=== PATIENT | female | born 1965 | race Caucasian/White ===

== ENCOUNTER 2021-07-03 00:58 | Day surgery (SDC) | payer BC, OTHER, SELFPAY ==
[2021-06-20 09:11] VITALS: BMI 32.2
[2021-07-03 08:24] VITALS: BP 136/91; PULSE 88; RESP 18; TEMP 36.1; O2SAT 100; BMI 31.4
--- NOTE | 2021-07-03 08:44 | WPDGICN ---
Assessment and Plan Assessment and plan (1) Ulcerative colitis: Code(s): K51.90 - Ulcerative colitis, unspecified, without complications Status: Acute Assessment and Plan: Patient with long history of ulcerative colitis clinically in remission on Humira. Plan to continue Humira. Intermittent screening colonoscopies are advised. Colonoscopy will be performed at this time. Further recommendations will be given after endoscopy. GI Consult Note Consult date/time: 07/03/21 08:44 HPI: Ainsley Davis is a 56 year old female Presents for screening colonoscopy. Patient has a history of ulcerative colitis with symptoms throughout her whole life. It was diagnosed at least 15 years ago. Most recently has been stable. Her current weight appetite bowel movements are normal. She has been maintained on Humira 40 mg every 2 weeks. Patient denies any blood in her stools. Her bowel movements are normal. Her family history is noncontributory. [facility], [facility] Family History Family History Sibling Hypertension Family history of kidney stones Mother Family history of malignant neoplasm Family history of kidney disease Father Family history of congestive heart failure Other Family history of alcoholism Family history of allergic disorder Social History Social History Years smoked: 15 Smoking status: Former smoker Smoking end date: 06/14/05 Alcohol intake: never Living arrangements: alone Meds Home Medications and Allergies Home Medications Medication Instructions Recorded Confirmed Type azelastine 137 mcg (0.1 %) nasal 137 mcg INTRANASAL Q12H 05/21/21 06/20/21 History spray aerosol ezetimibe 10 mg tablet 10 mg PO DAILY 05/21/21 06/20/21 History fluoxetine 20 mg capsule 20 mg PO DAILY 05/21/21 06/20/21 History montelukast 10 mg tablet 10 mg PO DAILY 05/21/21 06/20/21 History adalimumab 40 mg/0.8 mL 40 mg SUBCUT .COMPLEX #6 ea 05/27/21 Rx subcutaneous pen kit adalimumab 40 mg/0.8 mL See Rx Instructions SUBCUT 06/02/21 06/20/21 Rx subcutaneous pen kit .COMPLEX #6 ea acetaminophen [Tylenol] 650 mg PO BID 06/20/21 06/20/21 History ergocalciferol (vitamin D2) 25,000 unit PO BID 06/20/21 06/20/21 History [Vitamin D2] famotidine 20 mg PO DAILY 06/20/21 06/20/21 History fluticasone propionate [Flonase] 1 spray INTRANASAL DAILY 06/20/21 06/20/21 History multivit with min-folic acid 1 tablet PO DAILY 06/20/21 06/20/21 History [Adult One Daily Multivitamin] Allergies Allergy/AdvReac Type Severity Reaction Status Date / Time azathioprine Allergy Intermediate THROAT Verified 07/03/21 08:18 SWELLING mesalamine Allergy Intermediate THROAT Verified 07/03/21 08:18 SWELLING azithromycin Allergy Unknown Hives Verified 07/03/21 08:18 Sulfa (Sulfonamide Allergy Unknown rash Verified 07/03/21 08:18 Antibiotics) Vital Signs Vital Signs - 24 hr 07/03/21 08:24 Temperature 97 F L Pulse Rate 88 Respiratory Rate 18 Blood Pressure 136/91 H Pulse Oximetry 100 Exam Narrative: Physical exam reveals patient be alert. Vital signs stable. HEENT exam is unremarkable. Patient is anicteric. Lungs are clear to auscultation and percussion. Heart is without murmur or extra sounds. Abdominal exam bowel sounds are present soft nontender with no hepato splenomegaly. Digital external rectal exam is normal.
[2021-07-03] MEDS: LACTATED RINGERS 1,000 ML 150 ML IV CONT (08:45)
--- NOTE | 2021-07-03 09:21 | WPDANESEPPF ---
Anes - Initial Pre Proc Eval Procedure: Operation Date: 07/03/21 09:30 Proposed Procedures p Colonoscopy - Tommy Harper MD Date/Time: 07/03/21 09:21 Surgeon: Tommy Harper MD Pre Op Diagnosis: ulcerative colitis Patient Data Age: 56 Gender: F Height: 1.57 m Weight: 77.9 kg Last Vital Signs Temp 97 F L 07/03/21 08:24 Pulse 88 07/03/21 08:24 Resp 18 07/03/21 08:24 BP 136/91 H 07/03/21 08:24 Pulse Ox 100 07/03/21 08:24 Allergies Allergy/AdvReac Type Severity Reaction Status Date / Time azathioprine Allergy Intermediate THROAT Verified 07/03/21 08:18 SWELLING mesalamine Allergy Intermediate THROAT Verified 07/03/21 08:18 SWELLING azithromycin Allergy Unknown Hives Verified 07/03/21 08:18 Sulfa (Sulfonamide Allergy Unknown rash Verified 07/03/21 08:18 Antibiotics) Home Medications Medication Instructions Recorded Confirmed Type azelastine 137 mcg (0.1 %) nasal 137 mcg INTRANASAL Q12H 05/21/21 06/20/21 History spray aerosol ezetimibe 10 mg tablet 10 mg PO DAILY 05/21/21 06/20/21 History fluoxetine 20 mg capsule 20 mg PO DAILY 05/21/21 06/20/21 History montelukast 10 mg tablet 10 mg PO DAILY 05/21/21 06/20/21 History adalimumab 40 mg/0.8 mL 40 mg SUBCUT .COMPLEX #6 ea 05/27/21 Rx subcutaneous pen kit adalimumab 40 mg/0.8 mL See Rx Instructions SUBCUT 06/02/21 06/20/21 Rx subcutaneous pen kit .COMPLEX #6 ea acetaminophen [Tylenol] 650 mg PO BID 06/20/21 06/20/21 History ergocalciferol (vitamin D2) 25,000 unit PO BID 06/20/21 06/20/21 History [Vitamin D2] famotidine 20 mg PO DAILY 06/20/21 06/20/21 History fluticasone propionate [Flonase] 1 spray INTRANASAL DAILY 06/20/21 06/20/21 History multivit with min-folic acid 1 tablet PO DAILY 06/20/21 06/20/21 History [Adult One Daily Multivitamin] Patient hx anesthesia problems: none Family hx anesthesia problems: none Results Review: All pre-operative results and documents have been reviewed as part of the pre-operative evaluation. [facility] Family History Family History Sibling Hypertension Family history of kidney stones Mother Family history of malignant neoplasm Family history of kidney disease Father Family history of congestive heart failure Other Family history of alcoholism Family history of allergic disorder Social History Social History Years smoked: 15 Smoking status: Former smoker Smoking end date: 06/14/05 Alcohol intake: never Living arrangements: alone Anes - Eval Final PreProcedure Day of Procedure 07/03/21 09:21 Patient weight: obese Heart: regular rate and rhythm Lungs: clear to auscultation Airway: Mallampati scale class II Neurological: alert and oriented Last oral intake: >/= 8 hours ASA classification: III Emergent: no Anesthetic plan: proceed Anesthesia type and monitoring: general GIVS and standard monitoring Results Review: All pre-operative results and documents have been reviewed as part of the pre-operative evaluation. Informed Consent: The patient's anesthetic plan and its attendant risks and benefits were discussed with the patient/family/POA. Questions were solicited and answers provided to the satisfaction of the patient/family/POA.
[2021-07-03 09:50] VITALS: BP 146/80; PULSE 70; RESP 23; O2SAT 100
[2021-07-03 10:00] VITALS: BP 139/83; PULSE 76; RESP 22; O2SAT 100
[2021-07-03 10:10] VITALS: BP 155/87; PULSE 62; RESP 22; O2SAT 100
== END 2021-07-03 10:24 | disposition home or self-care (01) ==
PROVIDERS: PCP Nurse Practitioner Adult Health; Visit Provider Internal Medicine Gastroenterology
PROC: 0DJD8ZZ Inspection of Lower Intestinal Tract, Via Natural or Artificial Opening Endoscopic (ICD-10-PCS; CPT 45378; principal; 2021-07-03 09:30)
DX: K51.00 Ulcerative (chronic) pancolitis without complications (principal); K63.5 Polyp of colon; Z87.891 Personal history of nicotine dependence; E66.9 Obesity, unspecified; Z68.31 Body mass index [BMI] 31.0-31.9, adult
CPT/HCPCS: 45380; 45385; 88305; J2704; J7120

== ENCOUNTER 2022-03-12 07:56 | Outpatient (CLI) | payer OTHER, SELFPAY ==
--- NOTE | 2022-03-24 20:09 | WPDHOMESLEEP ---
Sleep Study - Home Unattended Date of Study: 03/12/22 Ordering Provider: Diana Hunter, FOURDRINIER MACHINE TENDER- Interpreting Provider: Malina Rice, DO Home Sleep Study Type: Watch PAT Height: 1.57 m Weight: 79.832 kg Body Mass Index: 32.1 Neck Circumference (inches): 15.75 Morenci: 3 Reason for Sleep Study Daytime hypersomnia Sleep History The patient is a 57 year old female with ulcerative colitis, seasonal allergies, hyperlipidemia, anxiety, folate deficiency, GERD and history of tobacco use that had a sleep study ordered by her primary care for evaluation of sleep apnea. the patient rarely awakens from sleep short of breath. He frequently awakens at night with heartburn, belching or cough. He frequently snores but it is fairly loud enough that others complain. She constantly has trouble sleeping when she has a cold. He denies waking up gasping for air throughout the night. She denies having breathing problems at night observed by herself or others. She occasionally sweats excessively at night. She occasionally has heart palpitations or irregular heartbeats during the night. She rarely falls asleep during the day but never while driving. She denies sleep paralysis, cataplexy and hypnagogic / hypnopompic hallucinations. He rarely has trouble at school or work due to sleepiness. She denies feeling afraid of going to sleep. She occasionally has nightmares. She occasionally remembers her dreams. She constantly has thoughts racing through her mind. She rarely feels sad or depressed. She constantly has anxiety. She occasionally has muscular tension. She occasionally notices parts of her body jerk. She rarely kicks during the night. She rarely has crawling and aching feelings in her legs and occasionally has leg pain during the night. She frequently grinds her teeth during sleep and frequently awakens with morning jaw pain. She is occasionally bothered by pain during the day but never awakened by pain during the night. She constantly wakes up feeling stiff in morning. She frequently wakes up with sore achy muscles. She frequently wakes up with pain in the neck, spine or other joints. She goes to bed at 9:00 p.m. on both weekdays and weekends. It takes her 30-60 minutes to fall asleep. She wakes up 2-3 times throughout the night for unknown reasons. It takes her 15-30 minutes to fall back asleep. She wakes up at 5:00 a.m. on both weekdays and weekends. She typically gets 8-10 hours of sleep per night. She will stay in bed for 5 minutes after waking up in the morning. She currently lives with her . She will consume caffeinated beverages within 2 hours of bedtime. He does not engage in physical exercise before bedtime. She will read watch television before falling asleep. She denies taking naps in the afternoon or the evening. She drinks 3 caffeinated beverages per day. He drinks 1-2 alcoholic beverages per week. She quit smoking cigarettes 10 years ago. She denies recreational drug use. [facility] Family History Family History Sibling Hypertension Family history of kidney stones Mother Family history of malignant neoplasm Family history of kidney disease Father Family history of congestive heart failure Other Family history of alcoholism Family history of allergic disorder Social History Social History Years smoked: 15 Smoking status: Former smoker Smoking end date: 06/14/05 Alcohol intake: never Medications Home Medications Medication Instructions Recorded Confirmed Type azelastine 137 mcg (0.1 %) nasal 137 mcg intranasal Q12H 05/21/21 06/20/21 History spray aerosol ezetimibe 10 mg tablet 10 mg PO DAILY 05/21/21 06/20/21 History fluoxetine 20 mg capsule 20 mg PO DAILY 05/21/21 06/20/21 History montelukast 10 mg tablet 10 mg PO DAILY 05/21/21 06/20/21 History adalimu
[2022-03-24 20:27] VITALS: BMI 32.1
== END 2022-03-13 11:03 | disposition home or self-care (01) ==
LOC: ANHCSM 07:57
PROVIDERS: PCP Nurse Practitioner Adult Health; Visit Provider Nurse Practitioner Family
DX: G47.10 Hypersomnia, unspecified (principal); G47.33 Obstructive sleep apnea (adult) (pediatric)
CPT/HCPCS: 95800

== ENCOUNTER 2023-08-20 13:42 | Outpatient (CLI) | payer OTHER, SELFPAY ==
--- NOTE | ~2023-08-20 | CT_ITS ---
EXAMINATION: CT abdomen pelvis wo con DATE: 08/20/2023 14:00 INDICATION: Calculus of kidney. TECHNIQUE: Computed tomography (CT) of the abdomen and pelvis was performed without intravenous contr ast. Automated exposure control and iterative reconstruction technique were employed. The dose-length product was 734.39 mGy-cm. COMPARISON: CT abdomen and pelvis 06/02/16 FINDINGS: The visualized portions of the lung bases demonstrate mild atelectasis. There is mild scarr ing in paraspinal right lower lobe. There are a few nodules in the lungs measuring up to 3 mm, likely benign. No pleural effusion. The heart size is normal. No pericardial effusion. The liver is normal. There are changes of cholecystectomy. The spleen, pancreas, adrenal glands, and right kidney are nor mal. There is a 17 mm stone in left renal pelvis. There is diverticulosis of the colon without eviden ce of diverticulitis. There are no dilated loops of bowel. The appendix is normal. There are no patho logically enlarged lymph nodes. There is no free intraperitoneal fluid. There is mild thoracic and franco mbar spondylosis. IMPRESSION: 1. Nonobstructing left kidney stone. Reviewed, dictated and finalized at location E. [employer]
== END 2023-08-20 13:43 ==
LOC: MICIMG 13:44
PROVIDERS: PCP Nurse Practitioner Family; Visit Provider Nurse Practitioner Family
DX: N20.0 Calculus of kidney (principal)
CPT/HCPCS: 74176

== ENCOUNTER 2023-09-20 15:26 | Outpatient (CLI) | payer OTHER, SELFPAY ==
--- NOTE | ~2023-09-20 | XR_ITS ---
Supine and upright views of the abdomen Clinical history: Kidney stones Findings: Bowel gas pattern is nonspecific. No evidence for obstruction or free air. 2 cm stone at th e left renal pelvis region noted. Osseous structures are intact. Impression: 2 cm stone at the left renal pelvis region. Reviewed, dictated and finalized at location . Impression: 2 cm stone at the left renal pelvis region.
== END 2023-09-20 15:27 | disposition home or self-care (01) ==
LOC: ANHIMG 15:28
PROVIDERS: PCP Nurse Practitioner Family; Visit Provider Physician Assistant
DX: N20.0 Calculus of kidney (principal)
CPT/HCPCS: 74018

== ENCOUNTER 2023-11-16 09:17 | Outpatient (CLI) | payer OTHER, SELFPAY ==
--- NOTE | ~2023-11-16 | XR_ITS ---
3 views of the abdomen compared to September 20, 2023. HISTORY: Kidney stone follow-up from stone removal on the left side. FINDINGS: The previously seen stone in the left renal pelvis is not demonstrated at this time. Tiny calcificati ons in the left side of the pelvis are most likely in the fecal matter but the most medial on the may be a tiny stone. Follow-up advised. Postoperative changes seen in the area of the gallbladder. Mild degenerative changes of the spine. IMPRESSION: Status post removal of the left renal pelvis stone. Tiny calcifications in the left side of the pelvis most likely in the fecal matter. Follow-up is advi sed to exclude a stone in the most medial tiny calcification. Reviewed, dictated and finalized at location A. IMPRESSION: Status post removal of the left renal pelvis stone. Tiny calcifications in the left side of the pelvis most likely in the fecal mat ter. Follow-up is advised to exclude a stone in the most medial tiny calcificat ion.
== END 2023-11-16 09:18 | disposition home or self-care (01) ==
PROVIDERS: PCP Nurse Practitioner Family; Visit Provider Urology
DX: N20.0 Calculus of kidney (principal); M61.452 Other calcification of muscle, left thigh
CPT/HCPCS: 74018

== ENCOUNTER 2023-12-28 13:39 | Outpatient (CLI) | payer OTHER, SELFPAY ==
--- NOTE | ~2023-12-28 | MM_ITS ---
EXAMINATION: MM screening thai BI w tiffani HISTORY: Screening TECHNIQUE: Craniocaudal and mediolateral oblique 3-D tomosynthesis images were obtained and synthetic 2-D images were generated. CAD analysis was submitted and interpreted. COMPARISON: Comparison to multiple prior studies sequentially, with oldest reviewed study dated 05/16. BREAST PARENCHYMAL COMPOSITION: Not dense: There are scattered areas of fibroglandular density. FINDINGS: There is no evidence of suspicious mass, calcification, or architectural distortion to sugg est malignancy in either breast. There has been no suspicious interval change. IMPRESSION: 1. No mammographic evidence of malignancy. 2. Recommend routine screening mammography in one year. BI-RADS Category 1: Negative Reviewed, dictated and finalized at location B.
== END 2023-12-28 13:40 | disposition home or self-care (01) ==
LOC: ANHIMG 13:44
PROVIDERS: PCP Nurse Practitioner Family; Visit Provider Nurse Practitioner Family
DX: Z12.31 Encounter for screening mammogram for malignant neoplasm of breast (principal)
CPT/HCPCS: 77063; 77067

== ENCOUNTER 2024-01-06 13:34 | Outpatient (CLI) | payer OTHER, SELFPAY ==
--- NOTE | ~2024-01-06 | XR_ITS ---
EXAM: XR abdomen/kub 1V DATE: 01/06/2024 13:51 HISTORY: HYDRONEPHROSIS, LT SIDE . COMPARISON: 11/16/2023; CT abdomen pelvis 08/20/2023. FINDINGS: Cholecystectomy clips. Normal bowel gas pattern. No organomegaly. Pelvic phleboliths. Marcia onal bones and soft tissues normal for age. IMPRESSION: No radiographic evidence of nephrolithiasis. Reviewed, dictated and finalized at location K.
--- NOTE | ~2024-01-06 | CT_ITS ---
EXAMINATION: CT abdomen pelvis wo/w con DATE: 01/06/2024 14:57 INDICATION: Hydronephrosis TECHNIQUE: Computed tomography (CT) of the abdomen and pelvis was performed without and subsequently with 130 CC Omnipaque 350 intravenous contrast. Automated exposure control and iterative reconstructi on technique were employed. Exam dose: 1737.33 mGy-cm total exam DLP. COMPARISON: 08/20/2023 CT abdomen pelvis. FINDINGS: The lung bases are clear. Normal heart size. No pericardial or pleural effusion. Status post cholecystectomy. No hepatic, pancreatic, splenic or adrenal space-occupying mass lesion. 3 mm nonobstructing left renal calculus. No other urinary tract calculus or hydroureteronephrosis. No renal space occupying mass lesion or filling defect of the renal collecting structures, ureters or urinary bladder. Bilateral ureteral jets. The uterus and adnexal areas are unremarkable. Normal caliber of the abdominal aorta. No intraperitoneal or peritoneal or pelvic mass lesion or adelfo opathy or ascites. The urinary bladder is unremarkable. No evidence of appendicitis. Diverticulosis of left and right colon. No bowel obstruction or intraperitoneal free air. Small fat-containing umbilical hernia. No suspicious osteolytic or osteoblastic lesions. IMPRESSION: Status post cholecystectomy 3 mm nonobstructing left renal calculus No urinary tract obstruction Diverticulosis of the colon Reviewed, dictated and finalized at Location A. Reviewed, dictated and finalized at location J.
== END 2024-01-06 13:35 | disposition home or self-care (01) ==
PROVIDERS: PCP Nurse Practitioner Family; Visit Provider Urology
DX: N13.30 Unspecified hydronephrosis (principal); N20.0 Calculus of kidney; K57.30 Diverticulosis of large intestine without perforation or abscess without bleeding; Z90.49 Acquired absence of other specified parts of digestive tract
CPT/HCPCS: 74018; 74178; Q9967

== ENCOUNTER 2024-10-15 08:03 | Emergency (ER) | payer OTHER, SELFPAY ==
--- NOTE | ~2024-10-15 | XR_ITS ---
XR abdomen/kub 1V Ordering provider: DORINA Moreno History: . blood in urine/hx of Kidney stones . Comparison: None. FINDINGS: BOWEL: Nonobstructive bowel gas pattern. ORGANOMEGALY: None. SIGNIFICANT PATHOLOGIC CALCIFICATIONS: Possible stone in the left lower ureter in the area of the pel vis. Follow-up advised. OTHER: No free air is seen under the diaphragm. IMPRESSION: NO ACUTE ABDOMINAL FINDINGS. Possible left lower ureteric stone. Clinical correlation and Follow-up advised. Reviewed, dictated and finalized at location A.
--- OUTSIDE RECORDS SUMMARY | 2024-10-15 08:05 | XMS_ITS | Patient Health Record ---
Author Organization [facility] [place] ([address]) Address [address] [facility] [address] [place] [address] Care Team Providers Care Web Marketing Manager Name Role Phone Diana Emerson Primary Care Provider Shannon vailable Patricia Loco Unavailable [phone] Chong Gregorio Unavailable [phone] [employer], Provider Unavailable Unavailab le Allergies Allergen (clinical drug ingredient) Drug/Non Drug Allergy documented on EMR Reaction Allergy Type Onset Date Status Sulfamethizole SULFAMETHIZOLE (uncoded) hives Allergy Active mesalamine Apriso throat itching/swelli ng Drug Allergy Active azathioprine azaTHIOprine vomiting, diarrhea Drug Allergy Active Azithromycin joint pain Drug Allergy Act jaden mesalamine Lialda hives Drug Allergy Active Reason For Referral No Information Medications Medication SIG (Take, Route, Frequency, Duration) Notes Start Date End Date Status AZELASTINE NASAL 137 mcg/inh 2 spray(s) intranasally BID for 30 day(s) Active Montelukast Sodium 10 MG 1 tab(s) orally once a day for 30 days 01/18/2020 Active SUDAFED PE 10 mg 1 tab(s) orally every 4 hours prn Active Singulair 10 MG 1 tab(s) orally once a day for 30 Active Tylenol 325 MG 2 tab(s) orally every 4 hours Active RANITIDINE 150 MG 1 CAP(S) ORALLY 2 TIMES A DAY *Please review for potential replacement for e-prescription and drug interaction check* Active Patanase 665 MCG/INH 2 SPRAY(S) INTRANASALLY 2 TIMES A DAY, PRN for 30 DAY(S) *Please review and pick correct strength-formulat ion from [employer] options. If intended option is not shown, discontinue and re-order from Quick Search* Not-Taking MONTELUKAST 10 mg 1 tab(s) orally once a day for 30 days 01/18/2020 Active Benadryl Allergy 25 MG 1 by mouth Qday, PRN Not-Rhys ing Flonase Allergy Relief 50 MCG/ACT 2 sprays intranasally once a day for 30 day(s) Active SINGULAIR 10 mg 1 tab(s) orally once a day for 30 Active NASAL WASHES N/A DIRECTED INTRANASALLY NEEDED for 30 *Please review for potential replacement for e-prescription and drug interaction check* Active Sudafed PE Maximum Strength 10 MG 1 tab(s) orally every 4 hours prn Active Azelastine HCl 137 MCG/SPRAY 2 spray(s) intranasally BID for 30 day(s) Active SINGULAIR 10 1 tab(s) orally once a day for 30 Active HUMIRA PEN 40 mg/0.8 mL subcutaneously every other week Active Singulair 10 MG 1 tab(s) orally once a day for 30 Active BENADRYL 25mg 1 by mouth Qday, PRN Not-Taking FLONASE 50 mcg/inh 1 spray(s) intranasally once a day Active FLONASE 50 mcg/inh 2 sprays intranasally once a day for 30 day(s) Active PATANASE 665 mcg/inh 2 spray(s) intranasally 2 times a day, PRN for 30 day(s) Not-Taking TYLENOL 325 mg 2 tab(s) orally every 4 hours Active MULTIVITAMIN Multiple Vitamins 1 tab(s) orally once a day Active Flonase Allergy Relief 50 MCG/ACT 1 spray(s) intranasally once a day Active Humira Pen 40 MG/0.8 ML SUBCUTANEOUSLY EVERY OTHER WEEK *Please review and pick correct strength-formulat ion from [employer] options. If intended option is not shown, discontinue and re-order from Quick Search* Active Multivitamin - 1 tab(s) orally once a day Active Immunizations Vaccine Route Administration Date Status Comme nts Fluzone Quadrivalent Unknown 02/03/2018 Refused Social History Tobacco Use: Social History Observation Description Date Details (start date - stop date) Never Smoker NA - NA Smoking Smart Form: Question Answer Notes Are you a: never smoker Problems Problem Type SNOMED Code ICD Code Onset Dates Problem Status W/U Status Risk Notes Problem Chronic allergic conjunctivitis (78752310) Other chronic allergic conjunctivitis (H10.45) Active confirmed Problem Allergic rhinitis caused by pollen (disorder) (05969785) Allergic rhinitis due to pollen (J30.1) Active confirmed Problem Allergic rhinitis (91196422) Other allergic rhinitis (J30.89) Active confirmed Problem Elevated blood pressure reading without diagnosis of hypertension (970351822) Elevated blood-pressure reading, without diagnosis of hypertension (R03.0) Active confirmed Encounters Encounter Location Date Provider Diagnosis [facility] [address] [place] [address] 11/27/2023 Provider Qing Allergic rhinitis due to pollen J30.1 Assessments Encounter Date Diagnosis (ICD Code) Assessment Notes Treatment Notes Treatment Clinical Notes Section Notes 11/27/2023 Allergic rhinitis due to pollen (ICD-10 - J30.1) Plan Of Treatment No Information Insurance Providers Payer Name Payer Address Payer Phone Subscriber Number Group Number Insured Name Patient Relationship to Insured Coverage Start Date Coverage End Date R [address] [address] [place], [place] [id number] [phone] Ainsley Davis Self - patient is the insured Medical (General) History Medical History History ICD Code Allergic rhinitis due to pollen Other allergic rhinitis Other chronic allergic conjunctivitis Ulcerative colitis, unspecified with uns pecified complications Calculus of kidney Surgical History Surgery Date(Month/Year) lithotripsy 1995 cholecystectomy 2017
--- OUTSIDE RECORDS SUMMARY | 2024-10-15 08:05 | XMS_ITS | Clinical Summary ---
Author Organization [facility] Address [address] [place] [address] Care Team Providers Care Dock Guard Name Role Phone Isabel Kline MD Primary Care Provider [phone] Diana Hunter APRN-OPTICAL LAB TECHNICIAN Unavailable [phone] Tommy Harper MD Unavailable [phone] Source Comments [facility],non-owned Affiliates and Associated Physician Practices is amultiple site organization consisting of ambulatory clinics and hospital sitesin [place], [place], [place] and [place]. This disclosure is being madepursuant to the Care Everywhere program and may not contain all information available regarding this patient. Last updated 18.[facility] Allergies Active Allergy Reactions Criticality Noted Date Comments Atorvastatin Urticaria Medium 12/13/2020 Azathioprine Urticaria Medium 05/21/2019 Azithromycin Other,Urticaria Medium 05/21/2019 Verified allergy, unknown, attack joints Mesalamine Nausea and/or Vomiting,Shortness of Breath High 03/18/2017 Pravastatin Diarrhea,Myalgias,Na usea and/or Vomiting 05/21/2019 Sulfa Drugs Urticaria Medium 12/13/2020 Medications * Be aware that medications may not be up to date on this document. Alwaysverify current medications with the patient. acetaminophen (TYLENOL) 500 MG tablet acetaminophen 500 mg 0 Active Fluticasone Propionate (FLONASE NA) Flonase 50 mcg 0 Active Probiotic Product (PROBIOTIC-10 PO) Active HUMIRA PEN 40 MG/0.8ML injection 1 Active azelastine (ASTELIN) 0.1 % nasal spray azelastine 137 mcg (0.1 %) nasal spray aerosol USE 1 TO 2 SPRAYS IN EACH NOSTRIL TWICE DAILY 0 Active vitamin D, ergocalciferol , (DRISDOL) 1.25 MG (65625 UT) capsule Take 50,000 Units by mouth every 7 days 1 Active ezetimibe (ZETIA) 10 MG tablet ezetimibe 10 mg tablet TAKE 1 TABLET BY MOUTH EVERY DAY 0 Active famotidine (PEPCID) 20 MG tablet famotidine 20 mg tablet Take 1 tablet twice a day by oral route. 0 Active FLUoxetine (PROZAC) 20 MG capsule fluoxetine 20 mg capsule TAKE 1 CAPSULE BY MOUTH EVERY DAY Active montelukast (SINGULAIR) 10 MG tablet montelukast 10 mg tablet TAKE 1 TABLET BY MOUTH EVERY DAY 0 Active meloxicam (MOBIC) 7.5 MG tablet Take 1 (one) tablet by mouth 2 times daily as needed for Pain 60 tablet 1 1 Active Family History Medical History Relation Name Comments Hypertension Brother Nephrolithiasis Brother Heart Failure Father passes at 61 Arthritis - Osteo Mother Cancer Mother Renal Disease Mother passed at 71 None Known Sister Relation Name Status Comments Brother Alive Father Mother Sister Alive Social History Tobacco Use Types Packs/Day Years Used Date Smoking Tobacco: Never Smokeless Tobacco: Never Alcohol Use Standard Drinks/Week Comments Yes 0 (1 standard drink = 0.6 oz pur e alcohol) Comments No Sex and Gender Information Value Date Recorded Sex Assigned at Not on file Legal Sex Female 1:50 PM CDT Gender Identity Not on file Sexual Orientation Not on file Last Filed Vital Signs Vital Sign Reading Time Taken Comments Blood Pressure 138/87 12/13/2020 9:31 AM CDT Pulse 80 12/13/2020 9:31 AM CDT Temperature 36.8 C (98.2 F) 12/13/2020 9:31 AM CDT Respiratory Rate 16 12/13/2020 9:31 AM CDT Oxygen Saturation - - Inhaled Oxygen Concentration - - Weight 81.2 kg (179 lb) 12/13/2020 9:31 AM CDT Height 157.5 cm (5' 2 ) 12/13/2020 9:31 AM CDT Body Mass Index 32.74 12/13/2020 9:31 AM CDT Plan of Treatment Health Maintenance Due Date Last Done Comments COLOGUARD (AGES 45-75) - COL ON CA SCREENING 1966 COLON MONITORING 1966 COLONOSCOPY - COLON CA SCREENING 1966 CT COLONOGRAPHY - COLON CA SCREENING 1966 Colorectal Cancer Screening 1966 FIT - COLON CA SCREENING 1966 FLEX SIG - COLON CA SCREENING 1966 LIPID TESTING 1966 MAMMOGRAM 1966 HIV SCREENING 1981 HEPATITIS C SCREENING 02/24/1984 DTAP/TDAP/TD VACCINES (1 - Tdap) 1985 HEPATITIS B VACCINE (1 of 3 - 19+ 3-dose series) 1985 PNEUMOCOCCAL VACCINE 50+ (1 of 1 - PCV) 02/29/2016 ZOSTER VACCINE (1 of 2) 02/29/2016 SCREENING FOR DIABETES 12/13/2020 COVID-19 VACCINE (2 - 2023-2 5 season) 2024 09/30/2020 DEPRESSION SCREENING 06/14/2024 INFLUENZA VACCINE (Season Ended) 2025 02/02/2020, 03/17/2019, 03/22/2017 HIB VACCINE Aged Out No longer eligi ble based on patient's age to complete this topic HPV VACCINE Aged Out No longer eligi ble based on patient's age to complete this topic MENINGOCOCCAL (Group B) VACCINE SHARED DECISION-MAKING Aged Out No longer eligible based on patient's age to complete this topic MENINGOCOCCAL GROUPS A/C/Y/W VACCINE Aged Out No longer eligible b ased on patient's age to complete this topic Insurance [facility] [employer] CIGNA [facility] C[employer]NA Care Teams Dock Guard Relationship Specialty Start Date End Date Isabel Kline MD [address] [facility] [address] [place] [address] PCP - General 01/04/18 Diana Hunter, JOB PRESS OPERATOR-OPTICAL LAB TECHNICIAN [address] [place] [phone] Nurse Practitioner Family 12/13/20 Tommy Harper MD [address] [place], [place] [id number] Gastroenterology 12/13/20
--- OUTSIDE RECORDS SUMMARY | 2024-10-15 08:05 | XMS_ITS | Clinical Summary ---
Author Organization [facility] Address [address] [place] [address] Care Team Providers Care Clinic Director Name Role Phone Diana Hunter [facility] Primary Care Provider + Allergies Active Allergy Reactions Criticality Noted Date Comments Mesalamine Er Nausea Only 05/21/2019 Azathioprine Hives 05/21/2019 Mesalamine Nausea Only 05/21/2019 Pravastatin Diarrhea,Nausea and Vomiting 2018 Sulfa Antibiotics Hives 05/21/2019 Azithromycin Hives 05/21/2019 Medications albuterol sulfate HFA 108 (90 Base) MCG/ACT inhaler Inhale 2 puffs into the lungs every 6 (six) hours as needed. 1 Inhaler 9 Active fluticasone propionate 50 MCG/ACT nasal spray Active adalimumab 40 MG/0.8ML injection Inject 40 mg into the skin. 8 Active buPROPion XL 150 MG 24 hr tablet TK 1 T PO QD STOP SERTRALINE 25MG 0 Active ezetimibe 10 MG tablet 0 Active montelukast 10 MG tablet Take 10 mg by mouth daily. 0 Active Multiple Vitamin (MULTIVITAMIN) capsule Take 1 capsule by mouth daily. Active azelastine 0.1 % nasal spray U 1 TO 2 SPRAYS IEN BID 0 Active Acetaminophen 500 MG Chew Tab Acti ve famotidine 20 MG tablet Take 20 mg by mouth 2 (two) times daily. Active Family History Medical History Relation Comments CHF Father Kidney Disease Mother Breast Cancer Neg Hx Relation Status Comments Father Mother Social History Tobacco Use Types Packs/Day Years Used Date Smoking Tobacco: Never Smokeless Tobacco: Never Alcohol Use Standard Drinks/Week Comments No 0 (1 standard drink = 0.6 oz pur e alcohol) AUDIT-C Answer Date Recorded Frequency of Alcohol Consumption Never 05/21/2019 Average Number of Drinks Not on file 019 Frequency of Binge Drinking Not on file 01/2019 Comments No Sex and Gender Information Value Date Recorded Sex Assigned at Not on file Legal Sex Female 6:50 PM CDT Gender Identity Female 06/02/2021 12:29 PM CARPET CLEANING TECHNICIAN Sexual Orientation Straight 06/02/2021 12 :29 PM CARPET CLEANING TECHNICIAN Last Filed Vital Signs Vital Sign Reading Time Taken Comments Blood Pressure 124/67 02/19/2020 9:00 AM CDT Pulse 99 02/19/2020 7:14 AM CDT Temperature 36.9 C (98.5 F) 02/19/2020 9:00 AM CDT Respiratory Rate 16 02/19/2020 7:14 AM CDT Oxygen Saturation 95% 02/19/2020 9:00 AM CDT Inhaled Oxygen Concentration - - Weight 77.1 kg (170 lb) 02/19/2020 7:14 AM CDT Height 157.5 cm (5' 2 ) 02/19/2020 7:14 AM CDT Body Mass Index 31.09 02/19/2020 7:14 AM CDT Plan of Treatment Health Maintenance Due Date Last Done Comments Cervical Cancer Screening Pa p Smear (Age 30 to 64) Every 3 Years 1966 Colorectal Cancer Screening Colonoscopy (10 Years) 1966 Annual Physical 1969 Hepatitis C 02/29/1984 DTaP, Tdap and Td Vaccines ( 1 - Tdap) 1985 Hepatitis B Vaccines (1 of 3 - 19+ 3-dose series) 1985 Cervical Cancer Screening Pa p with HPV Testing (Age 30 to 64) Every 5 Years 02/29/1996 Cervical Cancer Screening wi th HPV 02/29/1996 Pneumococcal Vaccine: 50+ Years (2 of 2 - PCV) 03/22/2018 03/22/2017 Mammogram Screening 05/24/2022 05/24/2020 COVID-19 Vaccine (3 - 2023-2 5 season) 2024 09/30/2020, 09/02/2020 Zoster Vaccines Completed 02/02/2020, 07/13/2019, 07/12/2007 Meningococcal B Vaccine Aged Out No l onger eligible based on patient's age to complete this topic Meningococcal Vaccine Aged Out No peter luis eligible based on patient's age to complete this topic RSV Immunizations Under 20 Months Aged Out No longer eligible b ased on patient's age to complete this topic Procedures Procedure Name Priority Date/Time Associated Diagnosis Comments MG SCREENING W SHRUTHI VIC DIGI Routine 05/24/2020 10:53 AM CARPET CLEANING TECHNICIAN Visit for screening mammogram from Last 3 Months or Most Recently Relevant to Health Maintenance Results * MG SCREENING W SHRUTHI VIC DIGI (05/24/2020 10:53 AM CARPET CLEANING TECHNICIAN) Anatomical Region Laterality Modality Breast Bilateral Mammography 06/27/2020 11:4 1 AM CARPET CLEANING TECHNICIAN Narrative 06/27/2020 11:42 AM CARPET CLEANING TECHNICIAN EXAMINATION: MG SCREENING W SHRUTHI VIC DIGI WITH TOMOSYNTHESIS AND COMPUTER-AIDED DETECTION (CAD) DATE: 05/24/2020 10:22 AM COMPARISON STUDIES: Despite multiple attempts, the previous exams could not be obtained. CLINICAL HISTORY: Visit for screening mammogram . FINDINGS: Bilateral CC, MLO, 2-D and 3-D acquisitions. Scattered residual fibroglandular parenchyma . . No evidence of dominant mass, architectural distortion, skin thickening, nipple retraction or suspicious clusters of microcalcifications. Benign calcifications noted. CONCLUSION: 1. BI-RADS Category 2 - benign findings. Annual screening mammography recommended. 2. TISSUE TYPE: Category B - There are areas of scattered fibroglandular density. MQSA BI-RADS Categories: Category 0 - needs additional imaging evaluation. Category 1 - negative. Category 2 - benign findings. Category 3 - probably benign findings, but short interval follow-up is recommended. Category 4 - suspicious abnormality and biopsy should be considered though the lesion may well be benign. Category 5 - highly suggestive of malignancy and appropriate action should be taken. A) A negative report should not delay a biopsy if a dominant or clinically suspicious mass is present. B) Adenosis and dense breasts may obscure an underlying neoplasm. C) Study interpreted with computer aided detection. Voice recognition software utilized. Interpreted By: Gene Freeman, 06/27/2020 11:41 AM Diana Hunter DIRECTOR OF INFECTION CONTROL-BC MAMMO Final Re sult from Last 3 Months or Most Recently Relevant to Health [place] [address] [facility] Care Teams Clinic Director Relationship Specialty Start Date End Date Diana Hunter, DIRECTOR OF INFECTION CONTROL-BC [address] [place] [id number] PCP - General NURSE PRACTITIONER 05/21/19
--- NOTE | 2024-10-15 08:06 | ED.GENADULT ---
HPI - General Adult General Chief complaint: Urogenital-Female Stated complaint: UTI Time Seen by Provider: 10/15/24 08:05 Source: patient Mode of arrival: ambulatory Limitations: no limitations History of Present Illness HPI narrative: 59-year-old female patient presents to the [facility] with complaints of urinary symptoms that started yesterday about 4:00 p.m.. Patient states that the pain come on suddenly and states she was having frequency and pain with urination and she did notice some blood in her urine. Patient states that last year in September or October she had to have surgery due to large kidney stones and her left kidney. Patient denies any low back pain today. Denies any fevers but states she did have some chills last night. Denies any nausea vomiting or diarrhea. Denies any abdominal pain. Patient states she has been taking [id number] Tylenol and a Zio for her symptoms. Related Data Home Medications ?Medication ?Instructions ?Recorded ?Confirmed ?Last Taken ?Type acetaminophen 325 mg capsule 650 mg PO BID 06/20/21 10/15/24 07/02/21 History (Tylenol) famotidine 20 mg tablet 20 mg PO DAILY 06/20/21 10/15/24 07/02/21 History fluticasone propionate 50 1 spray intranasal DAILY 06/20/21 10/15/24 07/02/21 History mcg/actuation nasal spray,suspension multivitamin with minerals-folic 1 tablet PO DAILY 06/20/21 10/15/24 07/02/21 History acid 0.4 mg tablet Allergies Allergy/AdvReac Type Severity Reaction Status Date / Time azathioprine Allergy Intermediate THROAT Verified 10/15/24 08:07 SWELLING mesalamine Allergy Intermediate THROAT Verified 10/15/24 08:07 SWELLING azithromycin Allergy Unknown Hives Verified 10/15/24 08:07 Sulfa (Sulfonamide Allergy Unknown rash Verified 10/15/24 08:07 Antibiotics) bupropion AdvReac Intermediate Diarrhea Verified 10/15/24 08:07 lialda AdvReac Intermediate Nausea Uncoded 10/15/24 08:07 Provastatin AdvReac Intermediate Nausea and Uncoded 10/15/24 08:07 Vomiting sertaline AdvReac Intermediate Fatigued Uncoded 10/15/24 08:07 Review of Systems Review of Systems: CONSTITUTIONAL: Denies fever, positive chills, denies sweats. EYES: Denies visual changes, redness, or discharge. ENT: Denies rhinorrhea, congestion, sore throat, or otalgia. CARDIOVASCULAR: Denies chest pain, palpitations, or edema. RESPIRATORY: Denies cough or dyspnea. GASTROINTESTINAL: Denies abdominal pain, nausea, vomiting, or diarrhea. GENITOURINARY: Positive dysuria with gross hematuria. SKIN: Denies rash or itching. MUSCULOSKELETAL: Denies back pain, joint pain, or myalgia. NEUROLOGIC: Denies headache, numbness, or weakness. PSYCHIATRIC: Denies anxiety or depression. [facility] Past Medical History Medical History Kidney stone B12 deficiency Vitamin D deficiency GERD (gastroesophageal reflux disease) Hyperlipidemia Crohn's colitis Anxiety Seasonal allergies Symptomatic cholelithiasis Plantar fasciitis of right foot Neuritis of right foot Surgical History Surgical History History of lithotripsy History of cholecystectomy History of endometrial ablation H/O hand surgery 1975 - left pinky Family History Family History Sibling Hypertension Family history of kidney stones Mother Family history of malignant neoplasm Family history of kidney disease Depression Father Family history of congestive heart failure Alcoholism Grandparent Hypertension Other Family history of alcoholism Family history of allergic disorder Social History Social History Smoking packs per day: 1 Smoking cigarettes per day: 20.0 Years smoked: 15 Smoking pack-years: 15.00 Smoking status: Former smoker Smoking end date: 06/14/05 Alcohol intake: current Alcohol use details: Maybe 6 in a year Substance use: never Substance use type: does not use Lack of Transportation: No Lack of Food: Never True Current Housing: I Have Housing Concerned About Future Housing: No Difficulty Paying Gas/Electric Bills: No Difficulty Paying for Meds: No Currently Unemployed: No Education: High School Diploma/GED Difficulty w/ Childcare or Family Care: No Living arrangements: with family Occupation/Education: occupation Gender identity (if verbalized by the patient): Female Comments At the time of my signature I agree with nursing past medical history, surgical, social, and family history. There is no relevant family history pertinent to the presenting complaint. Exam Narrative: GENERAL: Well-appearing, well-nourished, and in no acute distress. HEAD: Normocephalic, atraumatic. EYES: PERRLA and EOMI. ENT: Nares clear, no rhinorrhea or epistaxis. Mucous membranes moist. posterior pharynx with no erythema, tonsillar enlargement, exudates or lesions present. Bilateral TMs are clear no erythema or foreign bodies the canal. NECK: Supple. No lymphadenopathy CHEST: Clear to auscultation. No respiratory distress. HEART: Regular rate and rhythm. No murmur heard. Normal peripheral pulses. ABDOMEN: Soft, nontender, nondistended, normal active bowel sounds. No CVA tenderness on percussion EXTREMITIES: Normal range of motion. No edema. SKIN: Warm, dry, no rash. NEURO: No focal deficits. Alert and oriented x3. Course Course Level of Care: Express Care Visit Reevaluation(s) Reevaluation #1: Re-evaluated patient notified her that her x-ray does show a possible stone to the left uterire. discussed with patient that she should call follow-up with her urologist tomorrow. Patient is aware of plan of care denies any other questions or concerns at this time Date: 10/15/24 Time: 09:02 Vital Signs Vital signs: Vital Signs Temperature 36.0 C L 10/15/24 08:10 Pulse Rate 72 10/15/24 08:10 Respiratory Rate 17 10/15/24 08:10 Blood Pressure 134/79 10/15/24 08:10 Pulse Oximetry 97 10/15/24 08:10 Oxygen Delivery Room Air 10/15/24 08:10 Temperature 36.0 C L 10/15/24 08:10 Pulse Rate 72 10/15/24 08:10 Respiratory Rate 17 10/15/24 08:10 Blood Pressure 134/79 10/15/24 08:10 Pulse Oximetry 97 10/15/24 08:10 Oxygen Delivery Room Air 10/15/24 08:10 Vital signs reviewed The patient has been informed that they may have pre-hypertension or Hypertension based on a BP reading in the department. I recommend that the patient call the primary care provider listed on their discharge instructions or a physician of their choice this week to arrange follow up for further evaluation of possible pre-hypertension or Hypertension Medical Decision Making MDM Narrative Medical decision making narrative: plan of care for patient is to treat her UTI today with some oral antibiotics however before we discharge her we will go ahead and do a KUB just to ensure she has not developed any other kidney stone since she had such a problem with this last year and she does have blood in her urine today. I will reassess her once this has resulted. Patient is aware the plan of care at this time and is in agreement. Differential Diagnosis Differential Diagnosis: differential diagnosis: Uncomplicated lower UTI, uncomplicated UTI, pyelonephritis Vital Signs Vital Signs: Vital Signs Temperature 36.0 C L 10/15/24 08:10 Pulse Rate 72 10/15/24 08:10 Respiratory Rate 17 10/15/24 08:10 Blood Pressure 134/79 10/15/24 08:10 Pulse Oximetry 97 10/15/24 08:10 Oxygen Delivery Room Air 10/15/24 08:10 Temperature 36.0 C L 10/15/24 08:10 Pulse Rate 72 10/15/24 08:10 Respiratory Rate 17 10/15/24 08:10 Blood Pressure 134/79 10/15/24 08:10 Pulse Oximetry 97 10/15/24 08:10 Oxygen Delivery Room Air 10/15/24 08:10 Imaging Data Radiologist's impression: [place] [address] XRay Report Signed Patient: Ainsley Davis : 1965 MR#: [id number] Age: 59 Acct:[id number] Loc: [facility] ADM Date: 10/15/24Attending Dr: Ordering Physician: Kelin Underwood APRN Date of Service: 10/15/24 Procedure(s): XR abdomen/kub 1V Accession Number(s): [id number] cc: Diana Hunter APRN; Kelin Underwood APRN~ XR abdomen/kub 1V Ordering provider: DORINA Moreno History: . blood in urine/hx of Kidney stones . Comparison: None. FINDINGS: BOWEL: Nonobstructive bowel gas pattern. ORGANOMEGALY: None. SIGNIFICANT PATHOLOGIC CALCIFICATIONS: Possible stone in the left lower ureter in the area of the pelvis. Follow-up advised. OTHER: No free air is seen under the diaphragm. IMPRESSION: NO ACUTE ABDOMINAL FINDINGS. Possible left lower ureteric stone. Clinical correlation and Follow-up advised. Reviewed, dictated and finalized at location A. Critical Care Time Critical Care Time Critical Care Time: No Discharge Plan Discharge Clinical Impression: Urinary tract infection Patient Disposition: Home Condition: Stable Instructions: Antibiotic Form, Urinary Tract Infection in Women (ED) Additional Instructions: We will send a urine culture off to the lab; if the culture identifies an organism that the prescribed antibiotic will not treat, you will receive a phone call from an urgent care staff member and an appropriate antibiotic will be prescribed. -Your symptoms should begin to improve within a day of starting antibiotics. But you should finish all the antibiotic pills you get. Otherwise your infection might come back. -Also recommend: drink more fluid. It might help flush out germs, and it does no harm -Tylenol/ibuprofen prn for pain or fever -Follow-up with your primary care provider for urine recheck or seek ER visit if condition worsens with high fever, nausea, vomiting and severe back pain. Patient Language: Faroese Prescriptions: New cephalexin 500 mg capsule 500 mg PO TID 5 Days Qty: 15 0RF No Action ergocalciferol (vitamin D2) 1,250 mcg (50,000 unit) capsule 1,250 mcg PO WEEKLY Qty: 12 1RF famotidine 20 mg Tablet 20 mg PO DAILY fluticasone propionate [Flonase] 50 mcg/actuation [place],Suspension 1 spray INTRANASAL DAILY acetaminophen [Tylenol] 325 mg Capsule 650 mg PO BID multivit with min-folic acid [Adult One Daily Multivitamin] 0.4 mg Tablet 1 tablet PO DAILY azelastine 137 mcg (0.1 %) aerosol,spray 137 mcg intranasal Q12H Qty: 30 2RF Rx Instructions: administer into each nostril valacyclovir 500 mg tablet 500 mg PO DAILY Qty: 90 3RF adalimumab-adbm 40 mg/0.8 mL pen injector kit See Rx Instructions .ROUTE .COMPLEX Qty: 6 2RF Dose Instruction: INJECT THE CONTENTS OF 1 PEN (40 MG/0.8 ML) UNDER THE SKIN EVERY 2 WEEKS Rx Instructions: INJECT THE CONTENTS OF 1 PEN (40 MG/0.8 ML) UNDER THE SKIN EVERY 2 WEEKS fluoxetine 20 mg capsule 20 mg PO DAILY Qty: 90 1RF montelukast 10 mg tablet 10 mg PO DAILY Qty: 90 1RF Repatha SureClick 140 mg/mL pen injector 140 mg subcut .every 2 weeks Qty: 2 3RF Follow-up/Referrals: Diana Hunter APRN [Primary Care Provider] - Time of Disposition: 09:00
--- OUTSIDE RECORDS SUMMARY | 2024-10-15 08:06 | XMS_ITS | Clinical Summary ---
Author Organization [facility] Address [address] [place] [address] Phone Care Team Providers Care Line Maintenance Supervisor Name Role Phone Elsa Diana HOME APPLIANCES MECHANIC Primary Care Provider [phone] Allergies Active Allergy Reactions Criticality Noted Date Comments Azithromycin Hives,Joint Pain,Oth er (see comments) Medium 05/21/2019 Verified allergy, unknown, attack joints Bupropion Unknown 02/17/2024 Meloxicam Unknown,Swelling Medium 10/04/2023 Mesalamine nausea,Nausea And Vomiting,Unknown,Shortn ess of breath High 03/18/2017 Mesalamine Er nausea,Unknown 05/21/2019 Pravastatin Diarrhea,muscle pain,Other (see comments),Nausea And Vomiting Low 05/21/2019 Sertraline Unknown 02/17/2024 Sulfa Antibiotics Hives,Other (see comments) Medium 05/21/2019 Verified allergy, mild, rash Medications Humira, 2 Pen, 40 MG/0.8ML Pen-injector Kit inject every 2 weeks. 8 Active Repatha SureClick 140 MG/ML solution auto-injector every 14 (fourteen) days 4 Active famotidine (PEPCID) 20 MG tablet Take 20 mg by mouth 1 (one) time each day 0 Active FLUoxetine (PROzac) 20 MG capsule Take 1 capsule by mouth 1 (one) time each day Active fluticasone (FLONASE) 50 MCG/ACT nasal spray Administer 1 spray into affected nostril(s) in the morning. Active montelukast (SINGULAIR) 10 MG tablet Take 1 tablet by mouth 1 (one) time each day 0 Active Multiple Vitamin (multivitamin) capsule Take 1 capsule by mouth in the morning. Active valACYclovir (VALTREX) 500 MG tablet Take 500 mg by mouth 1 (one) time each day Active azelastine (ASTELIN) 0.1 % nasal spray Administer 1 spray into each nostril 1 (one) time each day Use in each nostril as directed Active Ferrous Sulfate Dried ER (Slow Release Iron) 45 MG tablet controlled-rele ase Take 1 tablet by mouth 1 (one) time each day Active acetaminophen (Tylenol) 325 MG capsule Take by mouth every 6 (six) hours if needed for mild pain Active Bacillus Coagulans-Inuli n (Probiotic) 1-250 BILLION-MG capsule Take 2 capsules by mouth 1 (one) time each day Active chlorthalidone (HYGROTON) 25 MG tablet Take 0.5 tablets (12.5 mg total) by mouth 1 (one) time each day 15 tablet 11 4 02/17/20 25 Active potassium citrate (UROCIT-K) 15 mEq SR tablet Take 1 tablet (15 mEq total) by mouth in the morning and 1 tablet (15 mEq total) in the evening. 60 tablet 11 4 02/17/20 25 Active Active Problems Problem Noted Date Diagnosed Date Nephrolithiasis 02/17/2024 Ulcerative colitis 02/17/2024 Body mass index (BMI) 32.0-32.9, adult 4 Assessment & Plan (02/17/2024 3:14 PM CDT): Weight loss as able Immunizations Immunization Administration Dates Next Due Influenza, Injectable, Quadr ivalent, Preservative Free 04/08/2021,03/17/2019 Moderna Sars-cov-2 Vaccination 06/12/2021,2020,09/02/2020 Zoster 07/12/2007 Zoster Recombinant 02/02/2020,07/13/2019 Social History Tobacco Use Types Packs/Day Years Used Date Smoking Tobacco: Never Smokeless Tobacco: Never Tobacco Cessation:Counseling Given: Not Answered Alcohol Use Standard Drinks/Week Comments Yes 0 (1 standard drink = 0.6 oz pur e alcohol) 2x a month Comments Unknown Sex and Gender Information Value Date Recorded Sex Assigned at Not on file Legal Sex Female 1:39 PM MDT Gender Identity Not on file Sexual Orientation Not on file Last Filed Vital Signs Vital Sign Reading Time Taken Comments Blood Pressure 128/88 02/17/2024 9:00 AM CDT Pulse - - Temperature - - Respiratory Rate - - Oxygen Saturation - - Inhaled Oxygen Concentration - - Weight 80.7 kg (178 lb) 02/17/2024 9:00 AM CDT Height 157.5 cm (5' 2 ) 02/17/2024 9:00 AM CDT Body Mass Index 32.56 02/17/2024 9:00 AM CDT Plan of Treatment Health Maintenance Due Date Last Done Comments COVID-19 Vaccine (2023-2 5 season) 2024 06/12/2021, 09/30/2020, 09/02/2020 Influenza Vaccine (Season Ended) 2025 04/08/20, 03/17/[address] Care Teams Line Maintenance Supervisor Relationship Specialty Start Date End Date Diana Hunter NP [address] [place] [phone] PCP - General Family Medicine 02/17/24
--- OUTSIDE RECORDS SUMMARY | 2024-10-15 08:06 | XMS_ITS | Clinical Summary ---
Author Organization [facility] Address [address], [address] [address] Phone Care Team Providers Care Land Developer Name Role Phone June Gutierrez APRN Primary Care Provider [phone] Marylou Hemphill APRN, PARK INTERPRETIVE SPECIALIST Unavailable [phone] Allergies Active Allergy Reactions Criticality Noted Date Comments Azithromycin Other (see Comments) Verified allergy, unknown, attack joints Mesalamine Shortness of Breath High 03/18/2017 Other Unknown Seasonal allergies Sulfa Antibiotics Other (see Comments) Verified allergy, mild, rash Medications Multiple Vitamin (MULTIVITAMINS) Capsule Take 1 Cap by mouth daily. Active Methylcellulose , Laxative, (FIBER THERAPY PO) Take 500 mg by mouth 3 times daily. Active Probiotic Product (PROBIOTIC ADVANCED PO) Take by mouth. Ac tive Fish Oil-Cholecalcif erin (FISH OIL + D3) 6436-2717 MG-UNIT Capsule Take by mouth. Active Digestive Enzymes Capsule Take by mouth. Active Fluticasone Propionate (FLONASE ALLERGY RELIEF NA) by Nasal route. Acti ve Phenylephrine HCl (EQ SUPHEDRINE PE PO) Take 10 mg by mouth as needed. Active polyethylene glycol (MIRALAX) Powder Use 255g with 64 oz of clear liquid as directed by office for colonoscopy prep. 255 g 7 Active Additional Information Patient not taking.Reported on 06/24/2017 azaTHIOprine (IMURAN) 50 MG Tablet Take 2 Tabs by mouth daily. 60 Tab 1 8 Active folic acid (FOLVITE) 1 MG Tablet Take 1 Tab by mouth daily. 90 Tab 3 8 Active Adalimumab (HUMIRA) 40 MG/0.8ML Prefilled Syringe Kit Patient to take 160 mg subq day 1, 80 mg subq day 14 then 40 mg subq every 14 days therafter 2 Each 3 8 Active adalimumab (HUMIRA PEN) 40 MG/0.8ML Pen-injector Kit 0.8 mL by Subcutaneous route every 14 days. 0.8 mL 3 8 Active Active Problems Problem Noted Date Diagnosed Date Shingles Overview (06/03/2015): Recurring Dyslipidemia Family History Medical History Relation Name Comments Leukemia/Lymphoma Mother Relation Name Status Comments Mother Social History Tobacco Use Types Packs/Day Years Used Date Smoking Tobacco: Former Cigarettes 2 20 Smokeless Tobacco: Never Alcohol Use Standard Drinks/Week Comments Yes 0 (1 standard drink = 0.6 oz pur e alcohol) socially Comments No Sex and Gender Information Value Date Recorded Sex Assigned at Not on file Legal Sex Female 9:52 PM CDT Gender Identity Not on file Sexual Orientation Not on file Last Filed Vital Signs Vital Sign Reading Time Taken Comments Blood Pressure 122/70 06/24/2017 1:52 PM BACK TENDER Pulse 87 06/24/2017 1:52 PM BACK TENDER Temperature 36.6 C (97.8 F) 03/18/2017 2:13 PM CDT Respiratory Rate 12 05/21/2016 10:3 9 AM BACK TENDER Oxygen Saturation 97% 06/24/2017 1:52 PM BACK TENDER Inhaled Oxygen Concentration - - Weight 79.2 kg (174 lb 11.2 oz) 06/24/2017 1:52 PM BACK TENDER Height 157.5 cm (5' 2 ) 06/24/2017 1:52 PM BACK TENDER Body Mass Index 31.95 06/24/2017 1:52 PM BACK TENDER Plan of Treatment Health Maintenance Due Date Last Done Comments Hepatitis C Virus (HCV) Screening 1966 TdaP Immunization 1966 SARS-COV-2 Immunization (#1) 1971 Hepatitis B Immunization (1 of 3 - 19+ 3-dose series) 1985 Zoster Immunization (1 of 2) 1985 Cologuard 02/29/2016 Immunochemical Fecal Occult Blood 02/29/2016 Pneumococcal Immunization (5 0+ years) (1 of 1 - PCV) 02/29/2016 Colonoscopy 01/20/2018 01/20/2017, 05/03/2014 Colorectal Cancer Screening 01/20/2018 Influenza Immunization (#1) 2024 Respiratory Syncytial Virus (RSV) Immunization (Adult) (1 - 1-dose 75+ series) 2041 01/20/2017, 05/03/2014 Meningococcal Immunization (ACWY) Aged Out No longer eligible b ased on patient's age to complete this topic Rotavirus Immunization Aged Out No lo nger eligible based on patient's age to complete this topic Procedures Procedure Name Priority Date/Time Associated Diagnosis Comments COLONOSCOPY Routine 01/20/2017 from Last 3 Months or Most Recently Relevant to Health Maintenance Results * COLONOSCOPY (01/20/2017) June Gutierrez APRN PROCEDURE/MINOR SURGICAL O RDERABLES Final Result from Last 3 Months or Most Recently Relevant to Health Maintenance Insurance [facility] Care Teams Land Developer Relationship Specialty Start Date End Date June Gutierrez APRN PCP - General Advanced Practice Nurse 05/21/16 Marylou Hemphill APRN, [employer] INTERPRETIVE SPECIALIST Nurse Practitioner Advanced Practice Nurse 05/21/16
--- OUTSIDE RECORDS SUMMARY | 2024-10-15 08:06 | XMS_ITS | Data Portability ---
Author Organization [facility] [place], Main Office Address [address] [place] [address] Assessment No assessment recorded. Plan of Treatment Reminders Order Date Submit Date Provider Last Modified By Organization Details Last Modified Time Details Appointments None recorded. Lab TSH, serum or plasma 2022 023 [facility] (Lab), [address] [place], [address], 3 07:35:58 lipid panel, serum 2022 023 [facility] (Lab), [address] [place], [address], 3 07:35:55 CMP, serum or plasma 2022 023 [facility] (Lab), [address] [place], [address], 3 07:35:56 glycohemogl obin, total, blood 2022 023 [email or web address] [facility] (Lab), [address] [place], [address], 3 08:19:58 CBC w/ auto diff 2022 023 [facility] (Lab), [address] [place], [address], 3 07:35:57 Referral None recorded. Procedures None recorded. Surgeries None recorded. Imaging None recorded. Medication Orders phentermine 37.5 mg tablet 2022 023 [facility] 435, [address], [address], 08:25:41 phentermine 37.5 mg tablet 2022 023 [place] [address], [address] [place] [address], [address], 3 17:21:05 phentermine 37.5 mg tablet 2022 023 [place] [address], [address] [place] [address], [address], 3 17:21:05 phentermine 37.5 mg tablet 2022 023 [place] [address], [address] [place] [address], [address], 17:21:05 Patient TargetsNo targets recorded. Patient Instructions Encounter Date Encounter Id Patient Instructions Last Modified By Organization Details Last Modified Time 09/10/2022 [id number] 1 mo fu weight. Not available 09/10/2022 17:04:16 10/07/2022 [id number] 30 min procedure for skin tag removal and weight check. Not available 10/07/2022 17:06:11 11/03/2022 [id number] Fu in 1 mo for weight check. Not available 11/03/2022 16:14:36 12/08/2022 [id number] FU in 3-4 mo prn. Not availab le 12/08/2022 17:31:23 05/13/2023 [id number] Fu in 1 mo for weight. Pt aware of dario departure. Not available 05/13/2023 08:31:24 Reason for Referral None Reported. Results Created Date Observation Date Name Description Value Unit Range Abnormal Flag Note LastModifiedBy Organization Detail LastModifiedTime 12/11/19 23 12/11/2022 LIPID PANEL , STAND MELVIN cholesterol, total 175 mg/dL <200 normal Not Available [facility] [address] [place], [address], 12/11/2022 07:35:55 12/11/19 23 12/11/2022 LIPID PANEL , STAND MELVIN HDL cholesterol 47 mg/dL > or = 50 low Not Available [facility] [place] [address] [place], [address], 12/11/2022 07:35:55 12/11/19 23 12/11/2022 LIPID PANEL , STAND MELVIN triglyceride s 215 mg/dL <150 high If a non-f astin g speci men was colle cted, consi nanette repea t trigl yceri de testi ng on a fasti ng speci men if clini gilma indic ated. Ygoesh edgar et al. J. of Clin. Lipid ol. 2015; 9:129 -169. Not Available [facility] [address] [place], [address], 12/11/2022 07:35:55 12/11/19 23 12/11/2022 LIPID PANEL , STAND MELVIN LDL-choleste rol 97 mg/dL _(daphney c) normal Refer ence range : <100 Eulalia able range <100 mg/dL for prima ry preve ntion ; <70 mg/dL for patie nts with CHD or diabe tic patie nts with > or = 2 CHD risk facto rs. LDL-C is now calcu lated using the Deloris n-Hop kins calcu latjackelyn n, which is a valid ated novel randall al than the Fried jaswinder equat ion in the estim ation of LDL-C . Deloris retana SS et al. SOLA. 2013; 310(1 9): 2061- 2068 (http ://ed ucati on.Qu estDi [facility]. com/f aq/FA Q164) Not Available [facility] [place] [address] [place], [address], 12/11/2022 07:35:55 12/11/19 23 12/11/2022 LIPID PANEL , STAND MELVIN chol/HDLC ratio 3.7 (calc ) <5.0 normal Not Available [address], [address], 12/11/2022 07:35:55 12/11/19 23 12/11/2022 LIPID PANEL , STAND MELVIN non HDL cholesterol 128 mg/dL _(daphney c) <130 normal For patie nts with diabe alex plus 1 major ASCVD risk facto r, treat ing to a non-H DL-C goal of <100 mg/dL (LDL- C of <70 mg/dL ) is marce mckeon optio n. Not Available [place] [address] [place], [address], 12/11/2022 07:35:55 12/11/19 23 12/11/2022 COMPR EHENS GAVIN METAB OLIC PANEL glucose 98 mg/dL 65-99 normal Fasti ng refer ence inter ramirez Not Available [address], [address], 12/11/2022 07:35:56 12/11/19 23 12/11/2022 COMPR EHENS GAVIN METAB OLIC PANEL urea nitrogen (BUN) 13 mg/dL 7-25 normal Not Available [address], [address], 12/11/2022 07:35:56 12/11/19 23 12/11/2022 COMPR EHENS GAVIN METAB OLIC PANEL creatinine 0.60 mg/dL 0.50-1 .03 normal Not Available [address] [place], [address], 12/11/2022 07:35:56 12/11/19 23 12/11/2022 COMPR EHENS GAVIN METAB OLIC PANEL eGFR 105 mL/mi n/1.7 3m2 > or = 60 normal The eGFR is based on the CKD-E PI 2020 equat ion. To calcu late the new eGFR from a previ ous Creat inine or Cysta flor ortiz t, go to https ://jacob cabrera.zoe prado/sanjay pike s/ kdoqi /gfr% 5Fcal culat or Not Available [place] [address] [place], [address], 12/11/2022 07:35:56 12/11/19 23 12/11/2022 COMPR EHENS GAVIN METAB OLIC PANEL BUN/creatini ne ratio NOT APPLIC ABLE (calc ) 6-22 Not Available [address], [address], 12/11/2022 07:35:56 12/11/19 23 12/11/2022 COMPR EHENS GAVIN METAB OLIC PANEL sodium 138 mmol/ L 135-14 6 normal Not Available [place] [address] [place], [address], 12/11/2022 07:35:56 12/11/19 23 12/11/2022 COMPR EHENS GVAIN METAB OLIC PANEL potassium 4.6 mmol/ L 3.5-5. 3 normal Not Available [place] [address] [place], [address], 12/11/2022 07:35:56 12/11/19 23 12/11/2022 COMPR EHENS GAVIN METAB OLIC PANEL chloride 102 mmol/ L 98-110 normal Not Available [facility] [place] [address] [place], [address], 12/11/2022 07:35:56 12/11/19 23 12/11/2022 COMPR EHENS GAVIN METAB OLIC PANEL carbon dioxide 26 mmol/ L 20-32 normal Not Available [place] [address] [place], [address], 12/11/2022 07:35:56 12/11/19 23 12/11/2022 COMPR EHENS GAVIN METAB OLIC PANEL calcium 9.4 mg/dL 8.6-10 .4 normal Not Available [address], [address], 12/11/2022 07:35:56 12/11/19 23 12/11/2022 COMPR EHENS GAVIN METAB OLIC PANEL protein, total 7.6 g/dL 6.1-8. 1 normal Not Available [address], [address], 12/11/2022 07:35:56 12/11/19 23 12/11/2022 COMPR EHENS GAVIN METAB OLIC PANEL albumin 4.3 g/dL 3.6-5. 1 normal Not Available [address], [address], 12/11/2022 07:35:56 12/11/19 23 12/11/2022 COMPR EHENS GAVIN METAB OLIC PANEL globulin 3.3 g/dL_ (calc ) 1.9-3. 7 normal Not Available [address], [address], 12/11/2022 07:35:56 12/11/19 23 12/11/2022 COMPR EHENS GAVIN METAB OLIC PANEL albumin/glob ulin ratio 1.3 (calc ) 1.0-2. 5 normal Not Available [address], [address], 12/11/2022 07:35:56 12/11/19 23 12/11/2022 COMPR EHENS GAVIN METAB OLIC PANEL bilirubin, total 0.2 mg/dL 0.2-1. 2 normal Not Available [address], [address], 12/11/2022 07:35:56 12/11/19 23 12/11/2022 COMPR EHENS GAVIN METAB OLIC PANEL alkaline phosphatase 80 U/L 37-153 normal Not Available [address], [address], 12/11/2022 07:35:56 12/11/19 23 12/11/2022 COMPR EHENS GAVIN METAB OLIC PANEL AST 26 U/L 10-35 normal Not Available [address], [address], 12/11/2022 07:35:56 12/11/19 23 12/11/2022 COMPR EHENS GAVIN METAB OLIC PANEL ALT 45 U/L 6-29 high Not Available [address], [address], 12/11/2022 07:35:56 12/11/19 23 12/11/2022 CBC (INCL UDES DIFF/ PLT) white blood cell count 6.7 thous and/u L 3.8-10 .8 normal Not Available [address], [address], 12/11/2022 07:35:57 12/11/19 23 12/11/2022 CBC (INCL UDES DIFF/ PLT) red blood cell count 5.10 haleigh on/uL 3.80-5 .10 normal Not Available [address], [address], 12/11/2022 07:35:57 12/11/19 23 12/11/2022 CBC (INCL UDES DIFF/ PLT) hemoglobin 14.1 g/dL 11.7-1 5.5 normal Not Available [address], [address], 12/11/2022 07:35:57 12/11/19 23 12/11/2022 CBC (INCL UDES DIFF/ PLT) hematocrit 44.1 % 35.0-4 5.0 normal Not Available [address], [address], 12/11/2022 07:35:57 12/11/19 23 12/11/2022 CBC (INCL UDES DIFF/ PLT) MCV 86.5 fL 80.0-1 00.0 normal Not Available [address], [address], 12/11/2022 07:35:57 12/11/19 23 12/11/2022 CBC (INCL UDES DIFF/ PLT) MCH 27.6 pg 27.0-3 3.0 normal Not Available [address], [address], 12/11/2022 07:35:57 12/11/19 23 12/11/2022 CBC (INCL UDES DIFF/ PLT) MCHC 32.0 g/dL 32.0-3 6.0 normal Not Available [address], [address], 12/11/2022 07:35:57 12/11/19 23 12/11/2022 CBC (INCL UDES DIFF/ PLT) RDW 14.1 % 11.0-1 5.0 normal Not Available [address], [address], 12/11/2022 07:35:57 12/11/19 23 12/11/2022 CBC (INCL UDES DIFF/ PLT) platelet count 388 thous and/u L 140-40 0 normal Not Available [address], [address], 12/11/2022 07:35:57 12/11/19 23 12/11/2022 CBC (INCL UDES DIFF/ PLT) MPV 10.5 fL 7.5-12 .5 normal Not Available [address], [address], 12/11/2022 07:35:57 12/11/19 23 12/11/2022 CBC (INCL UDES DIFF/ PLT) absolute neutrophils 3712 cells /uL 1500-7 800 normal Not Available [address], [address], 12/11/2022 07:35:57 12/11/19 23 12/11/2022 CBC (INCL UDES DIFF/ PLT) absolute lymphocytes 2111 cells /uL 850-39 00 normal Not Available [address], [address], 12/11/2022 07:35:57 12/11/19 23 12/11/2022 CBC (INCL UDES DIFF/ PLT) absolute monocytes 523 cells /uL 200-95 0 normal Not Available [address], [address], 12/11/2022 07:35:57 12/11/19 23 12/11/2022 CBC (INCL UDES DIFF/ PLT) absolute eosinophils 288 cells /uL 15-500 normal Not Available [address], [address], 12/11/2022 07:35:57 12/11/19 23 12/11/2022 CBC (INCL UDES DIFF/ PLT) absolute basophils 67 cells /uL 0-200 normal Not Available [address], [address], 12/11/2022 07:35:57 12/11/19 23 12/11/2022 CBC (INCL UDES DIFF/ PLT) neutrophils 55.4 % normal Not Available [address], [address], 12/11/2022 07:35:57 12/11/19 23 12/11/2022 CBC (INCL UDES DIFF/ PLT) lymphocytes 31.5 % normal Not Available [address], [address], 12/11/2022 07:35:57 12/11/19 23 12/11/2022 CBC (INCL UDES DIFF/ PLT) monocytes 7.8 % normal Not Available [address] [place], [address], 12/11/2022 07:35:57 12/11/19 23 12/11/2022 CBC (INCL UDES DIFF/ PLT) eosinophils 4.3 % normal Not Available [facility] [address], [address], 12/11/2022 07:35:57 12/11/19 23 12/11/2022 CBC (INCL UDES DIFF/ PLT) basophils 1.0 % normal Not Available [facility] [address], [address], 12/11/2022 07:35:57 12/11/19 23 12/11/2022 TSH W/REF LOCO TO FT4 TSH w/reflex to FT4 1.12 mIU/L 0.40-4 .50 normal Not Available [address], [address], 12/11/2022 07:35:58 12/11/1912/11/2022 HEMOG LOBIN A1C hemoglobin A1C 5.4 %_of_ total _HGB <5.7 normal For the purpo se of radha clay for the prese nce of diabe alex: <5.7% Consi stent with the absen ce of diabe alex 5.7-6 .4% Consi stent with incre ased risk for diabe alex (pred iabet es) > or =6.5% Consi stent with diabe alex This assay resul t is consi stent with a decre ased risk of diabe alex. Curre ntly, no conse nsus exist costa chavez use of hemog lobin A1c for diagn osis of diabe alex in child janet. Accor kathy to Ameri can Diabe alex Assoc iatio n (ADA) guide lines , hemog lobin A1c <7.0% repre sents optim al contr ol in non-p regna nt diabe tic patie nts. Diffe rent metri cs may apply to speci fic patie nt popul ation s. Stand ards of Medic al Care in Diabe alex(A DA). Not Available [facility] [address] [place], [address], 12/11/2022 07:35:59 Result Notes None recorded. Problems Name Problem SNOMED Code Status Onset Date Resolution Date Notes Provider Name and Address Organization Details Recorded Time Impacted cerumen in right ear 3153051841112 103 Active 2021 Not Available [facility] 3 08:49:27 Anxiety state 111856567 Active Not Available [facility] 3 08:49:27 Gastroesop hageal reflux disease 938863814 Active 2021 Not Available [facility] 3 08:49:27 Right upper quadrant pain 919878694 Active Not Available [facility] 3 08:49:27 Depressive disorder 05614127 Active Not Available [facility] 3 08:49:27 Herpes simplex type 2 infection 731334335 Active 2020 Not Available [facility] 3 08:49:27 Mitral valve prolapse 293092587 Active Not Available [facility] 3 08:49:27 Obese 080375672 Active 2022 Not Available [facility] 3 08:49:28 Herpes zoster 3049661 Active Not Available [facility] 3 08:49:28 Hyperlipid emia 67261591 Active Not Available [facility] 3 08:49:28 Allergic rhinitis 11787586 Active 2019 Not Available [facility] 3 08:49:28 Ulcerative colitis 29932279 Active 2020 Not Available [facility] 3 08:49:28 Liver enzymes level above reference range 002806872 Active 2019 Not Available [facility] 3 08:49:28 Administra tion of Varicella- zoster vaccine for shingles Active 2019 Not Available [facility] 3 08:49:28 Obstructiv e sleep apnea syndrome 83275349 Active 2022 Not Available [facility] 3 08:49:28 Anxiety 98908069 Active 2022 Diana Hunter NP [address], [place], [address] , [place] [employer] [facility] 3 16:52:07 Seasonal allergic rhinitis 509767897 Active 2022 Diana Hunter NP [address], [place], [address] , [employer] [facility] 3 16:54:34 Skin tag 871628825 Active 2022 Diana Hunter NP [address], [place], [address] , [employer] [facility] 3 17:04:03 Sleep apnea 33393179 Active 2022 Diana Hunter NP [address], [place], [address] , [employer] 3 15:00:59 Pain of left shoulder joint 4454911788300 [address]109 Active 2022 Diana Hunter NP [address], [place], [address] , [employer] 3 17:11:16 Notes:Some problems listed i n Document: #[id number] could not be added to this patient's chart. Please review this document and add these problems to the patient's chart manually as needed. Problem Notes None recorded. Procedures Surgical History Date Name Laterality Status Provider Name and Address Organization Details Recorded Time 01/13/20 Date of Last Colonoscopy completed ELDA Holcomb [place] [employer] [facility] [employer] [facility] 08/13/2022 16:48:27 07/03/19 22 Colonoscopy completed Not Available [facility] 08/12/2022 08:45:24 extraction of wisdom tooth completed Not Available [facility] 08/12/2022 08:45:24 Cholecystectomy completed Not Available [facility] 08/12/2022 08:45:24 Imaging Results None recorded. Procedure Notes None recorded. Medical Equipment None Reported. Allergies Allergen ID Allergen Name Allergen Category Reaction Reaction Severity Criticality Documentation Date Start Date Code Code System Note Provider Name and Address Organization Details Recorded Time 17605 Zithromax medicatio n arthralgi a (joint pain) Not available Not available 08/12/2022 80854 4 RxNorm Not Available [facility] 3 08:54:24 85924 Substance with sulfonami de structure and antibacte rial mechanism of action (substanc e) medicatio n hives moderate Not available 08/12/2022 50454 8003 SNOMED Not Available [facility] 3 08:54:24 26976 sertralin e medicatio n Not available Not available Not available 08/12/2022 09658 RxNorm Not Available [facility] 3 08:54:24 31251 pravastat in medicatio n myalgias (muscle pain) Not available Not available 08/12/2022 97462 RxNorm Not Available [facility] 3 08:54:24 47249 meloxicam medicatio n Not available Not available Not available 08/12/2022 83431 RxNorm Not Available [facility] 3 08:54:24 51634 Lipitor medicatio n hives moderate Not available 08/12/2022 32806 5 RxNorm simva stati n ok to take Not Available [facility] 3 08:54:24 70992 Lialda medicatio n Not available Not available Not available 08/12/2022 98368 0 RxNorm Not Available [facility] 3 08:54:24 68557 bupropion Not available Not available Not available Not available 08/12/2022 18979 RxNorm Not Available [facility] 3 08:54:24 75908 atorvasta tin medicatio n Not available Not available Not available 08/12/2022 45485 RxNorm Not Available [facility] 3 08:54:24 45281 Apriso medicatio n Not available Not available Not available 08/12/2022 91025 1 RxNorm Not Available [facility] 3 08:54:24 Medications Name Sig Start Date Stop Date Status Note LastModified by Organization Details LastModified Time cyclobenz aprine 10 mg tablet Take 1 tablet 3 times a day by oral route as needed. active Not Available Not Available No t Available atorvasta tin 20 mg tablet 02/23 completed Not Available Not Available Not Available clindamyc in HCl 300 mg capsule Take 1 capsule 3 times a day by oral route for 10 days. active Not Available Not Available No t Available triamcino lone acetonide 0.5 % topical cream APPLY A THIN LAYER TO THE AFFECTED AREA(S) BY TOPICAL ROUTE 2 TIMES PER DAY active Not Available Not Available No t Available benzonata te 200 mg capsule Take 1 capsule 3 times a day by oral route. 09/10 completed Not Available Not Available Not Available valacyclo vir 1 gram tablet TAKE 1 TABLET BY MOUTH THREE TIMES DAILY. active Not Available Not Available No t Available hydrocodo ne 5 mg-acetam inophen 325 mg tablet 08/06 completed Not Available Not Available Not Available BuSpar 10 mg tablet Take 1 tablet twice a day by oral route. 2012 active Not Available Not Available Not Avai lable prednison e 20 mg tablet 2 tabs po daily for 4 days, then 1 tab po daily for 7 days active Not Available Not Available No t Available Tubersol 5 tub. unit/0.1 mL intraderm al injection solution Inject 0.1 mL by intrader mal route. 08/06 completed Not Available Not Available Not Available prednison e 5 mg tablet TAKE 4 TABLET BY MOUTH DAILY AND DECREASE BY 5MG EVERY 5TH DAY. 07/02 completed Not Available Not Available Not Available metronida zole 500 mg tablet 08/06 completed Not Available Not Available Not Available azathiopr ine 50 mg tablet 08/06 completed Not Available Not Available Not Available phentermi ne 37.5 mg tablet TAKE 1 TABLET BY MOUTH ONCE DAILY active Not Available Not Available No t Available valacyclo vir 500 mg tablet active Not Available Not Available No t Available ciproflox acin 500 mg tablet TK 1 T PO Q 12 H FOR 5 DAYS active Not Available Not Available No t Available vancomyci n 125 mg capsule 08/06 completed Not Available Not Available Not Available acyclovir 800 mg tablet TAKE 1 TABLET BY MOUTH FIVE TIMES DAILY FOR 10 DAYS active Not Available Not Available No t Available Kenalog 40 mg/mL suspensio n for injection Take 60 mg every day by injectio n route for 1 day. 08/12 completed Not Available Not Available Not Available meloxicam 7.5 mg tablet TAKE 1 TABLET BY MOUTH TWICE DAILY NEEDED FOR PAIN 08/12 completed Not Available Not Available Not Available famotidin e 20 mg tablet Take 1 tablet twice a day by oral route. active Not Available Not Available No t Available pravastat in 10 mg tablet 1 tab po nightly. active Not Available Not Available No t Available cephalexi n 500 mg capsule TAKE 1 CAPSULE BY MOUTH TWICE A DAY UNTIL FINISHED active Not Available Not Available No t Available simvastat in 20 mg tablet TK 1 T PO QD active Not Available Not Available No t Available oseltamiv ir 75 mg capsule Take 1 capsule twice a day by oral route as directed for 5 days. active Not Available Not Available No t Available WelChol 625 mg tablet Take 6 TABLET EVERY DAY with largest meal by oral route. active Not Available Not Available No t Available ranitidin e 150 mg tablet Take 1 tablet twice a day by oral route for 30 days. active Not Available Not Available No t Available clotrimaz ole-betam ethasone 1 %-0.05 % topical cream APPLY TO THE AFFECTED AND SURROUND ING AREAS OF SKIN BY TOPICAL ROUTE 2 TIMES PER DAY IN THE MORNING AND EVENING FOR 2 WEEKS active Apply to affected areas, bid for next 1-2 weeks as directed . Not Available Not Available Not Available sertralin e 25 mg tablet TAKE 1 TABLET BY MOUTH ONCE DAILY active Not Available Not Available No t Available buspirone 7.5 mg tablet Take 1 tablet twice a day by oral route. active Not Available Not Available No t Available folic acid 1 mg tablet TK 1 T PO QD 03/17 completed Not Available Not Available Not Available monteluka st 10 mg tablet active Not Available Not Available Not Available ergocalci ferol (vitamin D2) 1,250 mcg (50,000 unit) capsule Take 1 capsule by mouth once a week 2022 active Not Available Not Available Not Avai lable azelastin e 137 mcg (0.1 %) nasal spray USE 1 TO 2 SPRAYS IN EACH NOSTRIL TWICE A DAY active Not Available Not Available No t Available budesonid e DR - ER 3 mg capsule,d elayed,ex tended release TK 3 CS PO QAM FOR 30 DAYS. THEN TK 2 CS PO FOR 30 DAYS. THEN TK 1 C PO QD FOR 30 DAYS 08/06 completed Not Available Not Available Not Available polyethyl ruma glycol 3350 17 gram/dose oral powder 03/17 completed for colonosc opy. Next due December 13, 2017 Not Available Not Available Not Available cefdinir 300 mg capsule 11/14 completed Not Available Not Available Not Available fluoxetin e 20 mg capsule Take 1 capsule by mouth once daily active Not Available Not Available No t Available Ventolin HFA 90 mcg/actua tion aerosol inhaler 11/14 completed Not Available Not Available Not Available L-Lysine 1,000 mg tablet Take 3 times a day by oral route. 08/12 completed Not Available Not Available Not Available escitalop prudencio 10 mg tablet Take 0.5 tablets every day by oral route. active dose decrease d to 5mg will take 1/2 tablet of 10mg. called pharmacy ok to cut tablet Not Available Not Available Not Available ezetimibe 10 mg tablet TAKE 1 TABLET NIGHTLY active Not Available Not Available No t Available bupropion HCl XL 150 mg 24 hr tablet, extended release TK 1 T PO QD STOP SERTRALI NE 25MG active Not Available Not Available No t Available escitalop prudencio 5 mg tablet Take 1 tablet every day by oral route for 90 days. active Not Available Not Available No t Available nitrofura ntoin monohydra te/macroc rystals 100 mg capsule TK 1 C PO BID active Not Available Not Available No t Available acetamino phen 500 mg 07/02 completed Not Available Not Available Not Available Flonase 50 mcg 2019 active Not Available Not Available Not Avai lable multivita min 2020 active Not Available Not Available Not Avai lable Fiber Therapy 1 tab 3x day 2012 active Not Available Not Available Not Avai lable Humira Pen 40 mg/0.8 mL subcutane ous kit inject every 2 weeks. active Not Available Not Available No t Available Lialda 1.2 gram tablet,de layed release TK 4 TS PO D UTD. 08/06 completed Not Available Not Available Not Available Pataday 0.2 % eye drops INSTILL 1 DROP IN OU QD active Not Available Not Available No t Available Fish Oil 1,000 mg capsule Take 1 capsule 3 times a day by oral route. 2012 active Not Available Not Available Not Avai lable Wal-Zyr 1 tab qd 2012 active Not Available Not Available Not Avai lable olopatadi ne 0.6 % nasal spray 03/17 completed Not Available Not Available Not Available Apriso 0.375 gram capsule,e xtended release 08/06 completed Not Available Not Available Not Available Vitamin D3 125 mcg (5,000 unit) tablet Take 1 tablet every day by oral route. 2012 active Not Available Not Available Not Avai lable Probiotic 1 PO QD 11/14 completed Not Available Not Available Not Available Multi Vitamin 1 tab qd 2012 active Not Available Not Available Not Avai lable Shingrix (PF) 50 mcg/0.5 mL intramusc ular suspensio n, kit ADM 0.5ML IM UTD 04/03 completed Not Available Not Available Not Available Flulaval Quad (PF) 60 mcg (15 mcg x 4)/0.5 mL IM syringe ADM 0.5ML IM UTD active Not Available Not Available No t Available BinaxNOW COVID-19 Ag Self Test kit TEST DIRECTED TODAY 09/10 completed Not Available Not Available Not Available Vitals Date Recorded Body height Body mass index (BMI) Body weight Body temperature Heart rate Respiratory rate Oxygen saturation Oxygen saturation in Arterial blood by Pulse oximetry Pain severity - 0-10 verbal numeric rating [Score] - Reported Systolic blood pressure Diastolic blood pressure Provider Name and Address Organization Details Last Updated DateTime 3 157.48 cm 31 kg/m2 63277.2 1 g 97.4 [degF] 83 /min 16 /min 98 % 98 % 0 122 mm[Hg] 88 mm[Hg] Diana Almazan RN [place] - [facility] [place] [facility] 3 16:47:47 Date Recorded Body height Body mass index (BMI) Body weight Body temperature Heart rate Respiratory rate Oxygen saturation Oxygen saturation in Arterial blood by Pulse oximetry Pain severity - 0-10 verbal numeric rating [Score] - Reported Systolic blood pressure Diastolic blood pressure Provider Name and Address Organization Details Last Updated DateTime 3 157.48 cm 30.6 kg/m2 71234.0 8 g 98 [degF] 107 /min 16 /min 97 % 97 % 0 130 mm[Hg] 84 mm[Hg] Diana Almazan RN [facility] [place] [facility] 3 16:40:49 Date Recorded Body height Body mass index (BMI) Body weight Body temperature Heart rate Respiratory rate Oxygen saturation Oxygen saturation in Arterial blood by Pulse oximetry Pain severity - 0-10 verbal numeric rating [Score] - Reported Systolic blood pressure Diastolic blood pressure Provider Name and Address Organization Details Last Updated DateTime 3 157.48 cm 30.3 kg/m2 98278.8 9 g 97.2 [degF] 90 /min 16 /min 97 % 97 % 0 134 mm[Hg] 72 mm[Hg] Diana Almazan RN [facility] [place] [facility] 3 15:53:22 Date Recorded Body height Body mass index (BMI) Body weight Body temperature Heart rate Heart rate Respiratory rate Oxygen saturation Oxygen saturation in Arterial blood by Pulse oximetry Pain severity - 0-10 verbal numeric rating [Score] - Reported Systolic blood pressure Diastolic blood pressure Provider Name and Address Organization Details Last Updated DateTime 3 157.48 cm 29.9 kg/m2 13440.0 1 g 97.3 [degF] 88 /min 88 /min 16 /min 97 % 97 % 0 138 mm[Hg] 86 mm[Hg] Diana Almazan RN [facility] [place] [facility] 3 16:49:47 Date Recorded Body weight Body mass index (BMI) Body height Systolic blood pressure Diastolic blood pressure Provider Name and Address Organization Details Last Updated DateTime 04/13/2023 25090.33 g 30.4 kg/m2 157.48 cm 126 mm[Hg] 78 mm[Hg] Diana Hunter NP [address] [place] [address], [place], [address], [facility] [place] [facility] 3 14:12:23 Date Recorded Body height Body mass index (BMI) Body weight Body temperature Heart rate Oxygen saturation Oxygen saturation in Arterial blood by Pulse oximetry Provider Name and Address Organization Details Last Updated DateTime 3 157.48 cm 29.7 kg/m2 36967.4 1 g 97.7 [degF] 106 /min 96 % 96 % Oanh Vasquez MA [place] - [facility] 08:03:03 Social History Question Answer Notes LastModified by Organizat ion Details LastModified Time Tobacco Smoking Status Never Smoker Not Available [facility] 08/12/2022 08:44:52 Do You Have An Advance Directive? No [email or web address] Information not available 08/13/2022 What Is Your Level Of Alcohol Consumption? Occasional MIGRATION.91504 73772 Information not available 08/12/2022 Do You Wear A Helmet When Biking? No MIGRATION.75844 11157 Information not available 08/12/2022 Is Blood Transfusion Acceptable In An Emergency? Yes [email or web address] Information not available 08/13/2022 What Is Your Level Of Caffeine Consumption? Moderate MIGRATION.36344 76381 Information not available 08/12/2022 How Much Tobacco Do You Chew? None MIGRATION.24890 99650 Information not available 08/12/2022 What Is Your Code Status? Full Code [email or web address] Information not available 08/13/2022 In The 14 Days Before Symptom Onset, Have You Had Close Contact With A Laboratory-confi rmed COVID-19 While That Case Was Ill? No MIGRATION.24939 01276 Information not available 08/12/2022 In The 14 Days Before Symptom Onset, Have You Had Close Contact With A Person Who Is Under Investigation For COVID-19 While That Person Was Ill? No MIGRATION.65689 00695 Information not available 08/12/2022 Are You Currently Employed? Yes [email or web address] Information not available 08/13/2022 What Type Of Diet Are You Following? REGULAR MIGRATION.42314 82880 Information not available 08/12/2022 Do You Or Have You Ever Used E-cigarettes Or Vape? 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 0 Information not available 11/03/2022 Have There Been Any Changes To Your Family Or Social Situation? No MIGRATION.35959 17003 Information not available 08/12/2022 Do You Use Insect Repellent Routinely? No MIGRATION.81052 38026 Information not available 08/12/2022 Where Do You Live? SingleLevelHouse Information not available 10/07/2022 Do You Have A Medical Power Of External Relations Director? No [email or web address] Information not available 08/13/2022 How Many Children Do You Have? 2 [email or web address] Information not available 08/13/2022 Do You Have Any Pets? Yes MIGRATION.52805 22766 Information not available 08/12/2022 Do You Use Protection During Sex? No [email or web address] Information not available 08/13/2022 What Is Your Relationship Status? MIGRATION.34463 94837 Information not available 08/12/2022 Do You Use Your Seat Belt Or Car Seat Routinely? Yes MIGRATION.59823 04945 Information not available 08/12/2022 Are You Sexually Active? Yes [email or web address] Information not available 08/13/2022 Do You Have Smoke And Carbon Monoxide Detectors In Your Home? Yes MIGRATION.25321 12809 Information not available 08/12/2022 Are You Passively Exposed To Smoke? No MIGRATION.55037 61777 Information not available 08/12/2022 Do You Or Have You Ever Used Smokeless Tobacco? Never Used Smokeless Tobacco MIGRATION.14435 65403 Information not available 08/12/2022 Are There Any Smokers In Your House? Yes MIGRATION.06201 68476 Information not available 08/12/2022 How Much Tobacco Do You Smoke? No MIGRATION.81868 89137 Information not available 08/12/2022 Do You Participate In Social Media? Yes MIGRATION.29603 35383 Information not available 08/12/2022 Do You Feel Stressed (tense, Restless, Nervous, Or Anxious, Or Unable To Sleep At Night)? [id number] MIGRATION.53553 45019 Information not available 08/12/2022 Do You Use Any Illicit Or Recreational Drugs? No MIGRATION.82582 30925 Information not available 08/12/2022 Do You Use Sunscreen Routinely? No MIGRATION.00013 99680 Information not available 08/12/2022 Has Tobacco Cessation Counseling Been Provided? No MIGRATION.97981 72198 Information not available 08/12/2022 Have You Recently Traveled Abroad? No MIGRATION.14286 23257 Information not available 08/12/2022 Are You Currently In School? No [email or web address] Information not available 08/13/2022 Do You Have Any Dietary Restrictions? No MIGRATION.69552 21803 Information not available 08/12/2022 Do You Or Have You Ever Used Any Other Forms Of Tobacco Or Nicotine? No MIGRATION.12113 62761 Information not available 08/12/2022 Sex: Female Functional Status Question Answer Note LastModified by Organizat ion Details LastModified Time What is your exercise level? None MIGRATION.[id number] Information not available 08/12/2022 Mental Status None recorded. Family History Nothing Reported. Medical History Condition Response ALLERGIES/HAYFEVER Y OBESITY Y GERD/NAUSEA Y HIGH CHOLESTEROL / HYPERLIPIDEMIA Y Gynecological History Statement/Question Response Date of Last Pap Smear Current Control Method Sterilizati on Date of Last Colonoscopy 01/12/2022 Most Recent Mammogram Most Recent Bone Density Obstetrics History GPAL:G 0 P 0 0 0 0 Immunizations Vaccine Type Date Status Note Provider Nam e and Address Organization Details Recorded Time COVID-19, mRNA, LNP-S, PF, 100 mcg/0.5mL dose or 50 mcg/0.25mL dose 1 completed Not Available [facility] 08/12/2022 08:54:19 COVID-19, mRNA, LNP-S, PF, 100 mcg/0.5mL dose or 50 mcg/0.25mL dose 1 completed Not Available [facility] 08/12/2022 08:54:19 COVID-19, mRNA, LNP-S, PF, 100 mcg/0.5mL dose or 50 mcg/0.25mL dose 1 completed Not Available [facility] 08/12/2022 08:54:19 zoster recombinant 0 completed Not Available [facility] 08/12/2022 08:54:19 Influenza, split virus, quadrivalent, preservative 0 completed Not Available [facility] 08/12/2022 08:54:19 zoster recombinant 0 completed Not Available [facility] 08/12/2022 08:54:19 zoster live 8 completed Not Available [facility] 08/12/2022 08:54:19 Influenza, split virus, quadrivalent, PF 9 completed Not Available [facility] 08/12/2022 08:54:19 Influenza, split virus, quadrivalent, preservative 7 completed Not Available [facility] 08/12/2022 08:54:20 pneumococcal polysaccharide PPV23 7 completed Not Available [facility] 08/12/2022 08:54:20 Influenza, split virus, quadrivalent, PF completed Not Available [facility] 08/12/2022 08:54:20 Past Encounters Encounter ID Performer Location Encounter Start Date Encounter Closed Date Diagnosis/Indication Diagnosis SNOMED-CT Code Diagnosis ICD10 Code Diagnosis Note [id number] Darnell Loza MD [facility] [address] [place] [id number] 10/08/2020 00:00:00 10/08/2020 17:35:06 [id number] Darnell Loza MD [facility] [place] [address] 12/30/2020 00:00:00 12/31/2020 10:41:22 [id number] Darnell Loza MD [facility] [place] [address] 01/16/2021 00:00:00 01/16/2021 12:53:07 [id number] Darnell Loza MD [facility] [address] [place] [place] [id number] 01/28/2021 00:00:00 01/28/2021 11:34:53 [id number] Darnell Loza MD [facility] [address] [place] [id number] 1 04/08/2021 00:00:00 04/08/2021 18:41:56 [id number] Darnell Loza MD [address] [address] 08/12/2021 00:00:00 08/12/2021 18:44:34 [id number] Diana Hunter NP [address] [address] 02/12/2022 00:00:00 02/12/2022 17:20:57 [id number] Darnell Loza MD [address] [address] 07/02/2022 00:00:00 07/02/2022 15:37:22 [id number] Diana Hunter NP [address] [address] 08/13/2022 16:35:16 08/13/2022 17:36:01 Obese 591569826 E66.9 Phentermin e 37.5 mg 1 tab po daily. Low carb diet. Anxiety state 213959164 F41.1 stable [id number] Diana Hunter NP [address] [address] 09/10/2022 16:35:31 09/10/2022 17:10:14 Anxiety 58103312 F41.9 Fluoxetine 20 mg po daily. Obese 628869300 E66.9 Phentermin e 37.5 mg 1 tab po daily. Low carb diet. Seasonal a llergic rhinitis 726043417 J30.2 Singulair 10 mg po daily. [id number] Diana Hunter NP [address] [address] 10/07/2022 16:28:06 10/07/2022 17:09:10 Anxiety 92597012 F41.9 Fluoxetine 20 mg po daily. Obese 515799290 E66.9 Phentermin e 37.5 mg 1 tab po daily. Low carb diet. Seasonal a llergic rhinitis 534348282 J30.2 Singulair 10 mg po daily. Skin tag 541635314 L91.8 tea tree oil. Will remove at next visit if time allows 45 min. [id number] Diana Hunter NP [address] [address] 11/03/2022 15:42:09 11/03/2022 16:18:47 Obese 805131746 E66.9 Phentermin e 37.5 mg 1 tab po daily. Low carb diet. Discussed diet changes. [id number] Diana Hunter NP [address] [address] 12/08/2022 16:36:16 12/08/2022 17:35:33 Pain of left shoulder joint 3652838022 2128695 M25.512 Referring to PT.Flexeri l 10 mg 1/2 tab po daily. Obese 789808035 E66.9 Phentermin e 37.5 mg to stop. No longer. Work on exercise and low daphney diet. Anemia screening 7640908 07 Z13.0 Diabetes m ellitus screening 743969206 Z13.1 Thyroid di sorder screening 824837069 Z13.29 Hyperlipidemia 11700232 E78.5 zetia 10 mg po daily. Gastroesop hageal reflux disease 352209088 K21.9 Famotidine 20 mg po bid Seasonal a llergic rhinitis 473021347 J30.2 Singulair 10 mg po daily. Anxiety 61051172 F41.9 Fluoxetine 20 mg po daily. [id number] Diana Hunter NP [address] [address] 05/13/2023 07:56:55 05/13/2023 08:41:02 Ulcerative colitis 82370364 K51.90 Seeing GI.Interes citlali in IV treatments for UC, getting IV every 3 weeks of vitamin bags. Insurance is supposed to cover. Pt started getting in 2019. Obese 599453456 E66.9 Phentermin e 37.5 mg to stop. No longer. Work on exercise and low daphney diet.Recom mended to increase protein.wo rking to start Lose it Health Concerns Section Related Observation LastModified by Organization Hanh [email or web address] LastModified Time None Recorded Concern Status LastModified by Organization Details LastModified Time None Recorded Advance Directives Directive N: Payers Encounter Date Sequence Insurance Name Policy Number Policy Momin Covered Member ID Momin Member ID Guarantor Name 09/10/2022 1 MERGED WITH [facility] [id number] Jonathan Davis [id number] Ainsley Davis 10/07/2022 1 MERGED WITH [facility] [id number] Jonathan Davis [id number] Ainsley Davis 11/03/2022 1 MERGED WITH [facility] [id number] Jonathan Vázquezkins [id number] Ainsley Davis 12/08/2022 1 MERGED WITH [facility] [id number] Jonathan Davis [id number] Ainsley Davis 05/13/2023 1 MERGED WITH [facility] [id number] Jonathan Davis [id number] Ainsley Davis Notes Date Note Type Note Provider Name and Address Organization Details Recorded Time 09/10/2022 text/html Here for follow up on weight. Has been doing well on the phentermine, no side effects. Has some numbness in hands since starting the medication. No bp issues. Still drinking water well. Staying active. Diana Hunter NP [address], [place], [address], [employer] 09/10/2022 17:07:55 10/07/2022 text/html Here for weight check Has dropped 14 lbs with phentermine. 2 lb drop since last month.Had ice cream- had to stop. Has been doing well on the phentermine, no side effects. No bp issues. Still drinking water well. Staying active. Diaan Hunter NP [address], [place], [address], [employer] 10/07/2022 17:11:28 11/03/2022 text/html Here for weight check. Has been trying to do low carb.Doesn't eat a lot Today salad with chicken, Parmesan cheese, ranch dressing.Breakfas t- triple zero Chobani with chocolate chips, banana.dinner- salad Sore throat off and on. grandkids sick. Diana Hunter NP [address], [place], [address], [place] [employer] 11/03/2022 16:17:36 12/08/2022 text/html Here for weight check. Plans to attend a fitness boot camp on .Phenterm ine is helping lose 2 lbs monthly. 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 Left shoulder is still hurting. Flexeril 10 mg knocked her out. hasn't been to PT. Diana Hunter NP [address] [facility], [place], [address], [employer] 12/08/2022 17:32:35 05/13/2023 text/html Here for weight check. Has been on phentermine- down 1 lb in 1 mo.Breakfast- energy bite- oats, pb, honey.Lunch- appleDinner- eggs Not able to eat a lot of veggies due to UC.Diarrhea. Drinking 64+ ounces water daily.Drinking body armour 5 calorie drink daily.Unsweet tea. Interested in seeing senior risk analyst. Hasn't been to ginger farmer in 5 years. Diana Hunter NP [address], [place], [address], [employer] 05/13/2023 08:40:11 OBGyn Episode No OBEpisode recorded.
--- OUTSIDE RECORDS SUMMARY | 2024-10-15 08:06 | XMS_ITS ---
Author Organization [facility] [place] ([address]) Address [address] [address] Care Team Providers Care Steamer Tender Name Role Phone Diana Emerson Primary Care Provider Shannon vailable Patricia Loco Unavailable [phone] [facility], Provider Unavailable Unavailab le Allergies Allergen (clinical drug ingredient) Drug/Non Drug Allergy documented on EMR Reaction Allergy Type Onset Date Status Sulfamethizole SULFAMETHIZOLE (uncoded) hives Allergy Active mesalamine Apriso throat itching/swelli ng Drug Allergy Active azathioprine azaTHIOprine vomiting, diarrhea Drug Allergy Active Azithromycin joint pain Drug Allergy Act jaden mesalamine Lialda hives Drug Allergy Active REASON FOR VISIT [facility] To [facility] Conversion Encounter Medications Medication SIG (Take, [...] a day for 30 days 01/18/2020 Active Singulair 10 MG 1 tab(s) orally once a day for 30 Active RANITIDINE 150 MG 1 CAP(S) ORALLY 2 TIMES A DAY *Please review for potential replacement for e-prescription and drug interaction check* Active Patanase 665 MCG/INH 2 SPRAY(S) INTRANASALLY 2 TIMES A DAY, PRN for 30 DAY(S) *Please review and pick correct strength-formulat ion from [facility] options. If intended option is not shown, discontinue and re-order from Quick Search* Not-Taking Benadryl Allergy 25 MG 1 by mouth Qday, PRN Not-Rhys ing Flonase Allergy Relief 50 MCG/ACT 2 sprays intranasally once a day for 30 day(s) Active Flonase Allergy Relief 50 MCG/ACT 1 spray(s) intranasally once a day Active Humira Pen 40 MG/0.8 ML SUBCUTANEOUSLY EVERY OTHER WEEK *Please review and pick correct strength-formulat ion from Testin options. If intended option is not shown, discontinue and re-order from Quick Search* Active Multivitamin - 1 tab(s) orally once a day Active Tylenol 325 MG 2 tab(s) orally every 4 hours Active Encounters Encounter Location Date Provider Diagnosis [address] [address] 11/27/2023 Provider [facility] Allergic rhinitis due to pollen J30.1 Assessments Encounter Date Diagnosis (ICD Code) Assessment Notes Treatment Notes Treatment Clinical Notes Section Notes 11/27/2023 Allergic rhinitis due to pollen (ICD-10 - J30.1) Plan Of Treatment Medication Medication Name Sig Start Date Stop Date Notes Singulair 10 MG 1 tab(s) orally once a day for 30 NASAL WASHES N/A DIRECTED INTRANASALLY NEEDED for 30 *Please review for potential replacement for e-prescription and drug interaction check* Sudafed PE Maximum Strength 10 MG 1 tab(s) orally every 4 hours prn Azelastine HCl 137 MCG/SPRAY 2 spray(s) intranasally BID for 30 day(s) Montelukast Sodium 10 MG 1 tab(s) orally once a day for 30 days 01/18/2020 Singulair 10 MG 1 tab(s) orally once a day for 30 Flonase Allergy Relief 50 MCG/ACT 2 sprays intranasally once a day for 30 day(s) Progress Notes * Freddy BACON:1965 (59 yo F)Acc No.[id number]:11/27/2023 Patient: Ainsley CARRANZA Provider: Riri rudd Migration :1965 A ge:58 Y S ex:Female Date:11/27/2023 Address:Counts include [address] beds at the [facility] [address] [facility], [id number] Pcp:Diana Hunter, [facility]- Subjective: * Chief Complaints: * 1 . [facility] * Medical History: * Medications: T aking Flonase Allergy Relief 50 MCG/ACT Suspension 1 spray(s) intranasally once a day , Taking Humira Pen 40 MG/0.8 ML KIT SUBCUTANEOUSLY EVERY OTHER WEEK , Notes to Pharmacist: *Please review and pick correct strength-formulation from [facility] options. If intended option is not shown, [...] *Please review and pick correct strength-formulation from [facility] options. If intended option is not shown, [...] * Electronic signature of Ja TRAVIS-Migration on 10/15/2024 at 08:05 AM CDT Sign off status: Pending * Provider: Riri rudd Migration Date: 0 11/27/2023 Generated for Jorge price/Bridget/Kathie on: 0 10/15/2024 08:05 AM CDT
--- OUTSIDE RECORDS SUMMARY | 2024-10-15 08:06 | XMS_ITS ---
Author Organization [facility] [place] ([address]) Address [address] [place] [address] Care Team Providers Care Foreclosure Home Inspector Name Role Phone Elsa CAMDiana SPRAGUE Primary Care Provider Shannon vailable Patricia Loco Unavailable [phone] Chong Gregorio Unavailable [phone] Encounters Encounter Location Date Provider Diagnosis [facility] [address] [place] [address] 10/25/2023 Chong Gregorio Plan Of Treatment No Information Progress Notes * Renetta BACONiDOB:1965 (59 yo F)Acc No.[id number]:10/25/2023 Progress Notes Patient: Ainsley CARRANZA Provider: Deb Gregorio PA-C :1965 A ge:58 Y S ex:Female Date:10/25/2023 Address:[facility] [facility] Pcp:CHANDRAKANT Sanchez Subjective: * Chief Complaints: * * Medical History: Objective: * Vitals: Assessment: Plan: * Treatment: * Billing Information: * Visit Code: * Procedure Codes: * Electronic signature of Silvestre Gregorio PA-C on 10/15/2024 at 08:05 AM CDT Sign off status: Pending * Provider: Deb Gregorio PA-C Date: 0 10/25/2023 Generated for Jorge price/Bridget/Kathie on: 0 10/15/2024 08:05 AM CDT
[2024-10-15 08:10] VITALS: BP 134/79; PULSE 72; RESP 17; TEMP 36; O2SAT 97
[2024-10-16 11:56] LABS: EDUAAPPEAR Clear; EDUABILI Negative (Negative); EDUABLOOD Trace (Negative); EDUACOLOR1 Yellow; EDUAGLUCOSE Negative (Negative); EDUAKETONE Negative (Negative); EDUALEUKO Trace (Negative); EDUANITRATE Positive (Negative); EDUAPH 5.5; EDUAPROTEIN Negative (Negative); EDUASPGRAVITY 1.005; EDUAUROBILI 0.2
== END 2024-10-15 09:01 | disposition home or self-care (01) ==
PROVIDERS: Emergency Provider Nurse Practitioner Family; PCP Nurse Practitioner Family
DX: N39.0 Urinary tract infection, site not specified (principal); Z87.891 Personal history of nicotine dependence; K50.90 Crohn's disease, unspecified, without complications; E78.5 Hyperlipidemia, unspecified; K21.9 Gastro-esophageal reflux disease without esophagitis; E55.9 Vitamin D deficiency, unspecified; F41.9 Anxiety disorder, unspecified; Z87.442 Personal history of urinary calculi
CPT/HCPCS: 74018; 81003; 87086; 87186; 99213; G0463

== ENCOUNTER 2024-11-16 01:33 | Day surgery (SDC) | payer OTHER, SELFPAY ==
[2024-11-07 14:40] VITALS: BMI 32.2
--- OUTSIDE RECORDS SUMMARY | 2024-11-16 01:37 | XMS_ITS | Clinical Summary ---
Author Organization [facility] Address [address] [place] [id number] Phone Care Team Providers Care Cryogenics Engineer Name Role Phone [place], Diana ALYSE Primary Care Provider [phone] Allergies Active Allergy Reactions Criticality Noted Date [...] 9:00 AM CDT Height 157.5 cm (5' 2) 02/17/2024 9:00 AM CDT Body Mass Index 32.56 02/17/2024 9:00 AM CDT Plan of Treatment Health Maintenance Due Date Last Done Comments COVID-19 Vaccine (2023-2 5 season) 2024 06/12/2021, 09/30/2020, 09/02/2020 Influenza Vaccine (Season Ended) 2025 04/08/20, 03/17/[address] Care Teams Cryogenics Engineer Relationship Specialty Start Date End Date Diana Hunter NP [address] [place] [id number] PCP - General Family Medicine 02/17/24
--- OUTSIDE RECORDS SUMMARY | 2024-11-16 01:37 | XMS_ITS ---
Author Organization [facility] [place] ([address]) Address [address] [address] Care Team Providers Care Medical Front Desk Specialist Name Role Phone Diana Emerson Primary Care Provider Shannon vailable Patricia Loco Unavailable [phone] [employer], Provider Unavailable Unavailab le Allergies Allergen (clinical drug ingredient) Drug/Non Drug Allergy documented on EMR Reaction Allergy Type Onset Date Status Sulfamethizole SULFAMETHIZOLE (uncoded) hives Allergy Active mesalamine Apriso throat itching/swelli ng Drug Allergy Active azathioprine azaTHIOprine vomiting, diarrhea Drug Allergy Active Azithromycin joint pain Drug Allergy Act jaden mesalamine Lialda hives Drug Allergy Active REASON FOR VISIT [facility] To [facility] Conversion Encounter Medications Medication SIG (Take, [...] review and pick correct strength-formulat ion from [employer] options. If intended option is not shown, [...] review and pick correct strength-formulat ion from [employer] options. If intended option is not shown, discontinue and re-order from [employer]* Active Multivitamin - 1 tab(s) orally once a day Active Tylenol 325 MG 2 tab(s) orally every 4 hours Active Encounters Encounter Location Date Provider Diagnosis [address] [address] 11/27/2023 Provider [facility] Allergic rhinitis due to pollen J30.1 Assessments [...] Notes * Freddy BACON:1965 (59 yo F)Acc No.[id number]:11/27/2023 Patient: Ainsley CARRANZA Provider: Riri rudd Migration :1965 A ge:58 Y S ex:Female Date:11/27/2023 Address:[facility] [address], [address] [facility], [id number] Pcp:Diana Hunter, [facility]- Subjective: * Chief Complaints: * 1 . [facility] * Medical History: * Medications: T aking Flonase Allergy Relief 50 MCG/ACT Suspension 1 spray(s) intranasally once a day , Taking Humira Pen 40 MG/0.8 ML KIT SUBCUTANEOUSLY EVERY OTHER WEEK , Notes to Pharmacist: *Please review and pick correct strength-formulation from [facility] options. If intended option is not [...] *Please review and pick correct strength-formulation from [facility] options. If intended option is not [...] * Electronic signature of Ja TRAVIS-Migration on 11/16/2024 at 01:36 AM CDT Sign off status: Pending * Provider: Riri rudd Migration Date: 0 11/27/2023 Generated for Jorge price/Bridget/Kathie on: 11/16/2024 01:36 AM CDT
--- OUTSIDE RECORDS SUMMARY | 2024-11-16 01:37 | XMS_ITS ---
Author Organization [facility] [place] ([address]) Address [address] [place] [address] Care Team Providers Care Wholesale Account Executive Name Role Phone Elsa CAMDiana SPRAGUE Primary Care Provider Shannon vailable Patricia Loco Unavailable [phone] Chong Gregorio Unavailable [phone] Encounters Encounter Location Date Provider Diagnosis [facility] [address] [place] [address] 10/25/2023 Chong Gregorio Plan Of Treatment No Information Progress Notes * Renetta BACONiDOB:1965 (59 yo F)Acc No.[id number]:10/25/2023 Progress Notes Patient: Ainsley CARRANZA Provider: Deb Gregorio PA-C :1965 A ge:58 Y S ex:Female Date:10/25/2023 [facility] [id number] Pcp:CHANDRAKANT Sanchez Subjective: * Chief Complaints: * * Medical History: Objective: * Vitals: Assessment: Plan: * Treatment: * Billing Information: * Visit Code: * Procedure Codes: * Electronic signature of Silvestre Gregorio PA-C on 11/16/2024 at 01:36 AM CDT Sign off status: Pending * Provider: Deb Gregorio PA-C Date: 0 10/25/2023 Generated for Jorge price/Bridget/Kathie on: 0 11/16/2024 01:36 AM CDT
--- OUTSIDE RECORDS SUMMARY | 2024-11-16 01:37 | XMS_ITS | Data Portability ---
Author Organization [facility] [employer], Main Office Address [address] [place] [address] Assessment No assessment recorded. Plan of Treatment Reminders Order Date Submit Date Provider Last Modified By Organization Details Last Modified Time Details Appointments None recorded. Lab TSH, serum or plasma 2022 023 [facility] (Lab), [address] [place], [address], 3 07:35:58 lipid panel, serum 2022 023 [facility] (Lab), [address] [place], [address], 3 07:35:55 CMP, serum or plasma 2022 023 [facility] (Lab), [address] [place], [address], 3 07:35:56 glycohemogl obin, total, blood 2022 023 [email or web address] (Lab), [address] [place], [address], 3 08:19:58 CBC w/ auto diff 2022 023 [facility] (Lab), [address] [place], [address], 3 07:35:57 Referral None recorded. Procedures None recorded. Surgeries None recorded. Imaging None recorded. Medication Orders phentermine 37.5 mg tablet 2022 023 [facility], [address], [address], 08:25:41 phentermine 37.5 mg tablet 2022 023 [place] [address], [address] [place] [address], [address], 3 17:21:05 phentermine 37.5 mg tablet 2022 023 [place] [address], [address] [place] [address], [address], 3 17:21:05 phentermine 37.5 mg tablet 2022 023 [place] [address], [address] [place] [address], [address], 17:21:05 Patient TargetsNo targets recorded. Patient Instructions Encounter Date Encounter Id Patient Instructions Last Modified By Organization Details Last Modified Time 09/10/2022 [id number] 1 mo fu weight. Not available 09/10/2022 17:04:16 10/07/2022 [id number] 30 min procedure for skin tag removal and weight check. Not available 10/07/2022 17:06:11 11/03/2022 [id number] Fu in 1 mo for weight check. Not available 11/03/2022 16:14:36 12/08/2022 [id number] FU in 3-4 mo prn. Not availab le 12/08/2022 17:31:23 05/13/2023 [id number] Fu in 1 mo for weight. Pt aware of dario departure. Not available 05/13/2023 08:31:24 Reason for Referral None Reported. Results Created Date Observation Date Name Description Value Unit Range Abnormal Flag Note LastModifiedBy Organization Detail LastModifiedTime 12/11/19 23 12/11/2022 LIPID PANEL , STAND MELVIN cholesterol, total 175 mg/dL <200 normal Not Available [facility] [address] [place], [address], 12/11/2022 07:35:55 12/11/19 23 12/11/2022 LIPID PANEL , STAND MELVIN HDL cholesterol 47 mg/dL > or = 50 low Not Available [facility] [place] [address] [place], [address], 12/11/2022 07:35:55 12/11/19 23 12/11/2022 LIPID PANEL , STAND MELVIN triglyceride s 215 mg/dL <150 high If a non-f astin g speci men was colle cted, consi nanette repea t trigl yceri de testi ng on a fasti ng speci men if clini gilma indic ated. Yogesh edgar et al. J. of Clin. Lipid ol. 2015; 9:129 -169. Not Available [facility] [address] [place], [address], 12/11/2022 07:35:55 12/11/19 23 12/11/2022 LIPID PANEL [...] 2061- 2068 (http ://ed ucati on.Qu estDi VMIX Medias. com/f aq/FA Q164) Not Available [facility] [place] [address] [place], [address], 12/11/2022 07:35:55 12/11/19 23 12/11/2022 LIPID PANEL , STAND MELVIN chol/HDLC ratio 3.7 (calc ) <5.0 normal Not Available [address], [address], 12/11/2022 07:35:55 12/11/19 23 12/11/2022 LIPID PANEL , STAND MELVIN non HDL cholesterol 128 mg/dL _(daphney c) <130 normal For patie nts with diabe alex plus 1 major ASCVD risk facto r, treat ing to a non-H DL-C goal of <100 mg/dL (LDL- C of <70 mg/dL ) is marce mckeon optio n. Not Available [place] [address] [place], [address], 12/11/2022 07:35:55 12/11/19 23 12/11/2022 COMPR EHENS GAVIN METAB OLIC PANEL glucose 98 mg/dL 65-99 normal Fasti ng refer ence inter ramirez Not Available [address], [address], 12/11/2022 07:35:56 12/11/19 23 12/11/2022 COMPR EHENS GAVIN METAB OLIC PANEL urea nitrogen (BUN) 13 mg/dL 7-25 normal Not Available [address], [address], 12/11/2022 07:35:56 12/11/19 23 12/11/2022 COMPR EHENS GAVIN METAB OLIC PANEL creatinine 0.60 mg/dL 0.50-1 .03 normal Not Available [address] [place], [address], 12/11/2022 07:35:56 12/11/19 23 12/11/2022 COMPR EHENS [...] kdoqi /gfr% 5Fcal culat or Not Available [place] [address] [place], [address], 12/11/2022 07:35:56 12/11/19 23 12/11/2022 COMPR EHENS GAVIN METAB OLIC PANEL BUN/creatini ne ratio NOT APPLIC ABLE (calc ) 6-22 Not Available [address], [address], 12/11/2022 07:35:56 12/11/19 23 12/11/2022 COMPR EHENS GAVIN METAB OLIC PANEL sodium 138 mmol/ L 135-14 6 normal Not Available [place] [address] [place], [address], 12/11/2022 07:35:56 12/11/19 23 12/11/2022 COMPR EHENS GAVIN METAB OLIC PANEL potassium 4.6 mmol/ L 3.5-5. 3 normal Not Available [place] [address] [place], [address], 12/11/2022 07:35:56 12/11/19 23 12/11/2022 COMPR EHENS GAVIN METAB OLIC PANEL chloride 102 mmol/ L 98-110 normal Not Available [facility] [place] [address] [place], [address], 12/11/2022 07:35:56 12/11/19 23 12/11/2022 COMPR EHENS GAVIN METAB OLIC PANEL carbon dioxide 26 mmol/ L 20-32 normal Not Available [place] [address] [place], [address], 12/11/2022 07:35:56 12/11/19 23 12/11/2022 COMPR EHENS GAVIN METAB OLIC PANEL calcium 9.4 mg/dL 8.6-10 .4 normal Not Available [address], [address], 12/11/2022 07:35:56 12/11/19 23 12/11/2022 COMPR EHENS GAVIN METAB OLIC PANEL protein, total 7.6 g/dL 6.1-8. 1 normal Not Available [address], [address], 12/11/2022 07:35:56 12/11/19 23 12/11/2022 COMPR EHENS GAVIN METAB OLIC PANEL albumin 4.3 g/dL 3.6-5. 1 normal Not Available [address], [address], 12/11/2022 07:35:56 12/11/19 23 12/11/2022 COMPR EHENS GAVIN METAB OLIC PANEL globulin 3.3 g/dL_ (calc ) 1.9-3. 7 normal Not Available [address], [address], 12/11/2022 07:35:56 12/11/19 23 12/11/2022 COMPR EHENS GAVIN METAB OLIC PANEL albumin/glob ulin ratio 1.3 (calc ) 1.0-2. 5 normal Not Available [address], [address], 12/11/2022 07:35:56 12/11/19 23 12/11/2022 COMPR EHENS GAVIN METAB OLIC PANEL bilirubin, total 0.2 mg/dL 0.2-1. 2 normal Not Available [address], [address], 12/11/2022 07:35:56 12/11/19 23 12/11/2022 COMPR EHENS GAVIN METAB OLIC PANEL alkaline phosphatase 80 U/L 37-153 normal Not Available [address], [address], 12/11/2022 07:35:56 12/11/19 23 12/11/2022 COMPR EHENS GAVIN METAB OLIC PANEL AST 26 U/L 10-35 normal Not Available [address], [address], 12/11/2022 07:35:56 12/11/19 23 12/11/2022 COMPR EHENS GAVIN METAB OLIC PANEL ALT 45 U/L 6-29 high Not Available [address], [address], 12/11/2022 07:35:56 12/11/19 23 12/11/2022 CBC (INCL UDES DIFF/ PLT) white blood cell count 6.7 thous and/u L 3.8-10 .8 normal Not Available [address], [address], 12/11/2022 07:35:57 12/11/19 23 12/11/2022 CBC (INCL UDES DIFF/ PLT) red blood cell count 5.10 haleigh on/uL 3.80-5 .10 normal Not Available [address], [address], 12/11/2022 07:35:57 12/11/19 23 12/11/2022 CBC (INCL UDES DIFF/ PLT) hemoglobin 14.1 g/dL 11.7-1 5.5 normal Not Available [address], [address], 12/11/2022 07:35:57 12/11/19 23 12/11/2022 CBC (INCL UDES DIFF/ PLT) hematocrit 44.1 % 35.0-4 5.0 normal Not Available [address], [address], 12/11/2022 07:35:57 12/11/19 23 12/11/2022 CBC (INCL UDES DIFF/ PLT) MCV 86.5 fL 80.0-1 00.0 normal Not Available [address], [address], 12/11/2022 07:35:57 12/11/19 23 12/11/2022 CBC (INCL UDES DIFF/ PLT) MCH 27.6 pg 27.0-3 3.0 normal Not Available [address], [address], 12/11/2022 07:35:57 12/11/19 23 12/11/2022 CBC (INCL UDES DIFF/ PLT) MCHC 32.0 g/dL 32.0-3 6.0 normal Not Available [address], [address], 12/11/2022 07:35:57 12/11/19 23 12/11/2022 CBC (INCL UDES DIFF/ PLT) RDW 14.1 % 11.0-1 5.0 normal Not Available [address], [address], 12/11/2022 07:35:57 12/11/19 23 12/11/2022 CBC (INCL UDES DIFF/ PLT) platelet count 388 thous and/u L 140-40 0 normal Not Available [address], [address], 12/11/2022 07:35:57 12/11/19 23 12/11/2022 CBC (INCL UDES DIFF/ PLT) MPV 10.5 fL 7.5-12 .5 normal Not Available [address], [address], 12/11/2022 07:35:57 12/11/19 23 12/11/2022 CBC (INCL UDES DIFF/ PLT) absolute neutrophils 3712 cells /uL 1500-7 800 normal Not Available [address], [address], 12/11/2022 07:35:57 12/11/19 23 12/11/2022 CBC (INCL UDES DIFF/ PLT) absolute lymphocytes 2111 cells /uL 850-39 00 normal Not Available [address], [address], 12/11/2022 07:35:57 12/11/19 23 12/11/2022 CBC (INCL UDES DIFF/ PLT) absolute monocytes 523 cells /uL 200-95 0 normal Not Available [address], [address], 12/11/2022 07:35:57 12/11/19 23 12/11/2022 CBC (INCL UDES DIFF/ PLT) absolute eosinophils 288 cells /uL 15-500 normal Not Available [address], [address], 12/11/2022 07:35:57 12/11/19 23 12/11/2022 CBC (INCL UDES DIFF/ PLT) absolute basophils 67 cells /uL 0-200 normal Not Available [address], [address], 12/11/2022 07:35:57 12/11/19 23 12/11/2022 CBC (INCL UDES DIFF/ PLT) neutrophils 55.4 % normal Not Available [address], [address], 12/11/2022 07:35:57 12/11/19 23 12/11/2022 CBC (INCL UDES DIFF/ PLT) lymphocytes 31.5 % normal Not Available [address], [address], 12/11/2022 07:35:57 12/11/19 23 12/11/2022 CBC (INCL UDES DIFF/ PLT) monocytes 7.8 % normal Not Available [address] [place], [address], 12/11/2022 07:35:57 12/11/19 23 12/11/2022 CBC (INCL UDES DIFF/ PLT) eosinophils 4.3 % normal Not Available [facility] [address], [address], 12/11/2022 07:35:57 12/11/19 23 12/11/2022 CBC (INCL UDES DIFF/ PLT) basophils 1.0 % normal Not Available [facility] [address], [address], 12/11/2022 07:35:57 12/11/19 23 12/11/2022 TSH W/REF LOCO TO FT4 TSH w/reflex to FT4 1.12 mIU/L 0.40-4 .50 normal Not Available [address], [address], 12/11/2022 07:35:58 12/11/1912/11/2022 HEMOG LOBIN A1C hemoglobin [...] diagn osis of diabe alex in child jante. Accor kathy to Ameri can Diabe alex Assoc iatio n (ADA) guide lines , hemog lobin A1c <7.0% repre sents optim al contr ol in non-p regna nt diabe tic patie nts. Diffe rent metri cs may apply to speci fic patie nt popul ation s. Stand ards of Medic al Care in Diabe alex(A DA). Not Available [facility] [address] [place], [address], 12/11/2022 07:35:59 Result Notes None recorded. Problems Name Problem SNOMED Code Status Onset Date Resolution Date Notes Provider Name and Address Organization Details Recorded Time Impacted cerumen in right ear 9709585321173 103 Active 2021 Not Available [facility] 3 08:49:27 Anxiety state 739609652 Active Not Available [facility] 3 08:49:27 Gastroesop hageal reflux disease 441254490 Active 2021 Not Available [facility] 3 08:49:27 Right upper quadrant pain 217267737 Active Not Available [facility] 3 08:49:27 Depressive disorder 48208466 Active Not Available [facility] 3 08:49:27 Herpes simplex type 2 infection 499721213 Active 2020 Not Available [facility] 3 08:49:27 Mitral valve prolapse 561786044 Active Not Available [facility] 3 08:49:27 Obese 495305318 Active 2022 Not Available [facility] 3 08:49:28 Herpes zoster 4579179 Active Not Available [facility] 3 08:49:28 Hyperlipid emia 02187032 Active Not Available [facility] 3 08:49:28 Allergic rhinitis 71810402 Active 2019 Not Available [facility] 3 08:49:28 Ulcerative colitis 39138160 Active 2020 Not Available [facility] 3 08:49:28 Liver enzymes level above reference range 854213242 Active 2019 Not Available [facility] 3 08:49:28 Administra tion of Varicella- zoster vaccine for shingles Active 2019 Not Available [facility] 3 08:49:28 Obstructiv e sleep apnea syndrome 64965385 Active 2022 Not Available [facility] 3 08:49:28 Anxiety 98139188 Active 2022 Diana Hunter NP [address], [place], [address] , [employer] [facility] 3 16:52:07 Seasonal allergic rhinitis 526476060 Active 2022 Diana Hunter NP [address], [place], [address] , [employer] [facility] 3 16:54:34 Skin tag 396785135 Active 2022 Diana Hunter NP [address], [place], [address] , [employer] [facility] 3 17:04:03 Sleep apnea 19173555 Active 2022 Diana Hunter NP [address], [place], [address] , [employer] 3 15:00:59 Pain of left shoulder joint 3354233485663 9109 Active 2022 Diana Hunter NP [address], [place], [address] , [employer] [facility] 3 17:11:16 Notes:Some problems listed i n Document: #[id number] could not be added to this patient's chart. Please review this document and add these problems to the patient's chart manually as needed. Problem Notes None recorded. Procedures Surgical History Date Name Laterality Status Provider Name and Address Organization Details Recorded Time 01/13/20 Date of Last Colonoscopy completed ELDA Holcomb [place] [employer] [facility] [employer] [facility] 08/13/2022 16:48:27 07/03/19 22 Colonoscopy completed Not Available [facility] 08/12/2022 08:45:24 extraction of wisdom tooth completed Not Available [facility] 08/12/2022 08:45:24 Cholecystectomy completed Not Available [facility] 08/12/2022 08:45:24 Imaging Results None recorded. Procedure Notes None recorded. Medical Equipment None Reported. Allergies Allergen ID Allergen Name Allergen Category Reaction Reaction Severity Criticality Documentation Date Start Date Code Code System Note Provider Name and Address Organization Details Recorded Time 08200 Zithromax medicatio n arthralgi a (joint pain) Not available Not available 08/12/2022 54910 4 RxNorm Not Available [facility] 3 08:54:24 05702 Substance with sulfonami de structure and antibacte rial mechanism of action (substanc e) medicatio n hives moderate Not available 08/12/2022 02355 8003 SNOMED Not Available [facility] 3 08:54:24 66070 sertralin e medicatio n Not available Not available Not available 08/12/2022 69394 RxNorm Not Available [facility] 3 08:54:24 24556 pravastat in medicatio n myalgias (muscle pain) Not available Not available 08/12/2022 26013 RxNorm Not Available [facility] 3 08:54:24 95588 meloxicam medicatio n Not available Not available Not available 08/12/2022 68311 RxNorm Not Available [facility] 3 08:54:24 94883 Lipitor medicatio n hives moderate Not available 08/12/2022 87732 5 RxNorm simva stati n ok to take Not Available [facility] 3 08:54:24 89747 Lialda medicatio n Not available Not available Not available 08/12/2022 06425 0 RxNorm Not Available [facility] 3 08:54:24 46306 bupropion Not available Not available Not available Not available 08/12/2022 41025 RxNorm Not Available [facility] 3 08:54:24 21000 atorvasta tin medicatio n Not available Not available Not available 08/12/2022 99761 RxNorm Not Available [facility] 3 08:54:24 63232 Apriso medicatio n Not available Not available Not available 08/12/2022 15371 1 RxNorm Not Available [facility] 3 08:54:24 Medications Name Sig Start Date [...] saturation in Arterial blood by Pulse oximetry Systolic blood pressure Diastolic blood pressure Provider Name and Address Organization Details Last Updated DateTime 3 157.48 cm 31 kg/m2 21383.2 1 g 97.4 [degF] 83 /min 16 /min 98 % 98 % 122 mm[Hg] 88 mm[Hg] Diana Almazan RN [place] - [facility] [employer] 3 16:47:47 Date Recorded Body height Body mass index (BMI) Body weight Body temperature Heart rate Respiratory rate Oxygen saturation Oxygen saturation in Arterial blood by Pulse oximetry Systolic blood pressure Diastolic blood pressure Provider Name and Address Organization Details Last Updated DateTime 3 157.48 cm 30.6 kg/m2 03152.0 8 g 98 [degF] 107 /min 16 /min 97 % 97 % 130 mm[Hg] 84 mm[Hg] Diana Almazan RN [facility] [employer] [facility] 3 16:40:49 Date Recorded Body height Body mass index (BMI) Body weight Body temperature Heart rate Respiratory rate Oxygen saturation Oxygen saturation in Arterial blood by Pulse oximetry Systolic blood pressure Diastolic blood pressure Provider Name and Address Organization Details Last Updated DateTime 3 157.48 cm 30.3 kg/m2 39870.8 9 g 97.2 [degF] 90 /min 16 /min 97 % 97 % 134 mm[Hg] 72 mm[Hg] Diana Almazan RN [facility] [employer] [facility] 3 15:53:22 Date Recorded Body height Body mass index (BMI) Body weight Body temperature Heart rate Heart rate Respiratory rate Oxygen saturation Oxygen saturation in Arterial blood by Pulse oximetry Systolic blood pressure Diastolic blood pressure Provider Name and Address Organization Details Last Updated DateTime 3 157.48 cm 29.9 kg/m2 56495.0 1 g 97.3 [degF] 88 /min 88 /min 16 /min 97 % 97 % 138 mm[Hg] 86 mm[Hg] Diana Almazan RN [facility] [employer] 3 16:49:47 Date Recorded Body weight Body mass index (BMI) Body height Systolic blood pressure Diastolic blood pressure Provider Name and Address Organization Details Last Updated DateTime 04/13/2023 12009.33 g 30.4 kg/m2 157.48 cm 126 mm[Hg] 78 mm[Hg] Diana Hunter NP [address] [place] [address], [address], [facility] [employer] 3 14:12:23 Date Recorded Body height Body mass index (BMI) Body weight Body temperature Heart rate Oxygen saturation Oxygen saturation in Arterial blood by Pulse oximetry Systolic blood pressure Diastolic blood pressure Provider Name and Address Organization Details Last Updated DateTime 3 157.48 cm 29.7 kg/m2 36165.4 1 g 97.7 [degF] 106 /min 96 % 96 % 131 mm[Hg] 82 mm[Hg] Oanh Vasquez MA [facility] 3 08:05:04 Social History Question Answer Notes LastModified by Organizat ion Details LastModified Time Tobacco Smoking Status Never Smoker Not Available [facility] 08/12/2022 08:44:52 Do You Have An Advance Directive? No [email or web address] Information not available 08/13/2022 Do You Wear A Helmet When Biking? No MIGRATION.25896 10100 Information not available 08/12/2022 Is Blood Transfusion Acceptable In An Emergency? Yes [email or web address] Information not available 08/13/2022 What Is Your Level Of Caffeine Consumption? Moderate MIGRATION.15398 17353 Information not available 08/12/2022 How Much Tobacco Do You Chew? None MIGRATION.85191 55712 Information not available 08/12/2022 What Is Your Code Status? Full Code [email or web address] Information not available 08/13/2022 In The 14 Days Before Symptom Onset, Have You Had Close Contact With A Laboratory-confir med COVID-19 While That Case Was Ill? No MIGRATION.48837 03225 Information not available 08/12/2022 In The 14 Days Before Symptom Onset, Have You Had Close Contact With A Person Who Is Under Investigation For COVID-19 While That Person Was Ill? No MIGRATION.66629 68256 Information not available 08/12/2022 What Type Of Diet Are You Following? REGULAR MIGRATION.20083 04908 Information not available 08/12/2022 How Many Days Of Moderate To Strenuous Exercise, Like A Brisk Walk, Did You Do In The Last 7 Days? 0 Information not available 11/03/2022 Have There Been Any Changes To Your Family Or Social Situation? No MIGRATION.86118 50183 Information not available 08/12/2022 Do You Use Insect Repellent Routinely? No MIGRATION.84142 09917 Information not available 08/12/2022 Where Do You Live? 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 2 [email or web address] Information not available 08/13/2022 Do You Have Any Pets? Yes MIGRATION.39311 81938 Information not available 08/12/2022 Do You Use Protection During Sex? No [email or web address] Information not available 08/13/2022 What Is Your Relationship Status? MIGRATION.57074 74220 Information not available 08/12/2022 Do You Use Your Seat Belt Or Car Seat Routinely? Yes MIGRATION.17810 44978 Information not available 08/12/2022 Are You Sexually Active? Yes [email or web address] Information not available 08/13/2022 Do You Have Smoke And Carbon Monoxide Detectors In Your Home? Yes MIGRATION.17276 98154 Information not available 08/12/2022 Are You Passively Exposed To Smoke? No MIGRATION.51922 56990 Information not available 08/12/2022 Are There Any Smokers In Your House? Yes MIGRATION.06879 76953 Information not available 08/12/2022 How Much Tobacco Do You Smoke? No MIGRATION.07865 74494 Information not available 08/12/2022 Do You Participate In Social Media? Yes MIGRATION.14212 21309 Information not available 08/12/2022 Do You Use Sunscreen Routinely? No MIGRATION.78741 45479 Information not available 08/12/2022 Has Tobacco Cessation Counseling Been Provided? No MIGRATION.22846 47059 Information not available 08/12/2022 Have You Recently Traveled Abroad? No MIGRATION.02247 50435 Information not available 08/12/2022 Are You Currently In School? No [email or web address] Information not available 08/13/2022 Do You Have Any Dietary Restrictions? No MIGRATION.43709 39602 Information not available 08/12/2022 Sex: Female Functional Status Question Answer Note LastModified by Organizat ion Details LastModified Time Do you use any illicit or recreational drugs? No MIGRATION.073081 2495 Information not available 08/12/2022 Do you or have you ever used any other forms of tobacco or nicotine? No MIGRATION.557068 2684 Information not available 08/12/2022 What is your level of alcohol consumption? Occasional MIGRATION.301357 6776 Information not available 08/12/2022 Do you or have you ever used smokeless tobacco? Never used smokeless tobacco MIGRATION.860158 6320 Information not available 08/12/2022 Are you currently employed? 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 Never used electronic cigarettes MIGRATION.358198 5376 Information not available 08/12/2022 What is your exercise level? None MIGRATION.760445 2215 Information not available 08/12/2022 Mental Status Question Answer Note LastModified by Organizat ion Details LastModified Time Do you feel stressed (tense, restless, nervous, or anxious, or unable to sleep at night)? [id number] MIGRATION.[id number] 6 Information not available 08/12/2022 Family History Nothing Reported. Medical History Condition [...] mcg/0.25mL dose 1 completed Not Available [facility] 08/12/2022 08:54:19 COVID-19, mRNA, LNP-S, PF, 100 mcg/0.5mL dose or 50 mcg/0.25mL dose 1 completed Not Available [facility] 08/12/2022 08:54:19 COVID-19, mRNA, LNP-S, PF, 100 mcg/0.5mL dose or 50 mcg/0.25mL dose 1 completed Not Available [facility] 08/12/2022 08:54:19 zoster recombinant 0 completed Not Available [facility] 08/12/2022 08:54:19 Influenza, split virus, quadrivalent, preservative 0 completed Not Available [facility] 08/12/2022 08:54:19 zoster recombinant 0 completed Not Available [facility] 08/12/2022 08:54:19 zoster live 8 completed Not Available [facility] 08/12/2022 08:54:19 Influenza, split virus, quadrivalent, PF 9 completed Not Available [facility] 08/12/2022 08:54:19 Influenza, split virus, quadrivalent, preservative 7 completed Not Available [facility] 08/12/2022 08:54:20 pneumococcal polysaccharide PPV23 7 completed Not Available [facility] 08/12/2022 08:54:20 Influenza, split virus, quadrivalent, PF completed Not Available [facility] 08/12/2022 08:54:20 Past Encounters Encounter ID Performer Location Encounter Start Date Encounter Closed Date Diagnosis/Indication Diagnosis SNOMED-CT Code Diagnosis ICD10 Code Diagnosis Note [id number] Darnell Loza MD [facility] [address] [facility] [place] [address] 10/08/2020 00:00:00 10/08/2020 17:35:06 [id number] Darnell Loza MD [facility] [place] [address] [facility] [facility] [place] [address] 12/30/2020 00:00:00 12/31/2020 10:41:22 [id number] Darnell Loza MD [facility] [address] [facility] [facility] [place] [address] 01/16/2021 00:00:00 01/16/2021 12:53:07 [id number] Darnell Loza MD [facility] [address] [facility] [facility] [place] [address] 01/28/2021 00:00:00 01/28/2021 11:34:53 [id number] Darnell Loza MD [facility] [address] [place], [place] [address] [place] [address] 04/08/2021 00:00:00 04/08/2021 18:41:56 [id number] Darnell Loza MD [facility] [address] [place], [place] [address] [place] [address] 08/12/2021 00:00:00 08/12/2021 18:44:34 [id number] Diana Hunter NP [facility] [address] [place], [place] [address] [place] [address] 02/12/2022 00:00:00 02/12/2022 17:20:57 [id number] Darnell Loza MD [address] [address] 07/02/2022 00:00:00 07/02/2022 15:37:22 [id number] Diana Hunter NP [address] [address] 08/13/2022 16:35:16 08/13/2022 17:36:01 Obese [id number] E66.9 Phentermin e 37.5 mg 1 tab po daily. Low carb diet. Anxiety state 172581057 F41.1 stable [id number] Diana Hunter NP [address] [address] 09/10/2022 16:35:31 09/10/2022 17:10:14 Anxiety 17704326 F41.9 Fluoxetine 20 mg po daily. Obese 799011351 E66.9 Phentermin e 37.5 mg 1 tab po daily. Low carb diet. Seasonal a llergic rhinitis 619908788 J30.2 Singulair 10 mg po daily. [id number] Diana Hunter NP [address] [address] 10/07/2022 16:28:06 10/07/2022 17:09:10 Anxiety 62636127 F41.9 Fluoxetine 20 mg po daily. Obese 343255829 E66.9 Phentermin e 37.5 mg 1 tab po daily. Low carb diet. Seasonal a llergic rhinitis 041498731 J30.2 Singulair 10 mg po daily. Skin tag 650349991 L91.8 tea tree oil. Will remove at next visit if time allows 45 min. [id number] Diana Hunter NP [address] [address] 11/03/2022 15:42:09 11/03/2022 16:18:47 Obese 387421586 E66.9 Phentermin e 37.5 mg 1 tab po daily. Low carb diet. Discussed diet changes. [id number] Diana Hunter NP [address] [address] 12/08/2022 16:36:16 12/08/2022 17:35:33 Pain of left shoulder joint [id number] 9035618 M25.512 Referring to PT.Flexeri l 10 mg 1/2 tab po daily. Obese 544982055 E66.9 Phentermin e 37.5 mg to stop. No longer. Work on exercise and low daphney diet. Anemia screening 0221192 07 Z13.0 Diabetes m ellitus screening 309268296 Z13.1 Thyroid di sorder screening 820663951 Z13.29 Hyperlipidemia 55667870 E78.5 zetia 10 mg po daily. Gastroesop hageal reflux disease 466514713 K21.9 Famotidine 20 mg po bid Seasonal a llergic rhinitis 532276373 J30.2 Singulair 10 mg po daily. Anxiety 37465989 F41.9 Fluoxetine 20 mg po daily. [id number] Diana Hunetr NP [address] [address] 05/13/2023 07:56:55 05/13/2023 08:41:02 Ulcerative colitis 54668506 K51.90 Seeing GI.Interes citlali in IV treatments for UC, getting IV every 3 weeks of vitamin bags. Insurance is supposed to cover. Pt started getting in 2019. Obese 038736860 E66.9 Phentermin e 37.5 mg to stop. No longer. Work on exercise and low daphney diet.Recom mended to increase protein.wo rking to start Lose it Health Concerns Section Related Observation LastModified by Organization Detai ls LastModified Time None Recorded Concern Status LastModified by Organization Details LastModified Time None Recorded Advance Directives Directive N: Payers Encounter Date Sequence Insurance Name Policy Number Policy Momin Covered Member ID Momin Member ID Guarantor Name 09/10/2022 1 [facility] [id number] Jonathan Davis [id number] Ainsley Davis 10/07/2022 1 [facility] [id number] Jonathan Davis [id number] Ainsley Davis 11/03/2022 1 [facility] [id number] Jonathan Davis [id number] Ainsley Davis 12/08/2022 1 [facility] [id number] Jonathan Davis [id number] Ainsley Davis 05/13/2023 1 [facility] [id number] Jonathan Davis [id number] Ainsley Davis Notes Date Note Type Note Provider Name and Address Organization Details Recorded Time 09/10/2022 text/html Here for follow up on weight. Has been doing well on the phentermine, no side effects. Has some numbness in hands since starting the medication. No bp issues. Still drinking water well. Staying active. Diana Hunter NP [address] [facility], [place] [address], [place], [address], [employer] [facility] [employer] 09/10/2022 17:07:55 10/07/2022 text/html Here for weight check Has dropped 14 lbs with phentermine. 2 lb drop since last month.Had ice cream- had to stop. Has been doing well on the phentermine, no side effects. No bp issues. Still drinking water well. Staying active. Diana Hunter NP [address] [facility], [place] [address], [place], [address], [employer] [facility] [employer] 10/07/2022 17:11:28 11/03/2022 text/html Here for weight check. Has been trying to do low carb.Doesn't eat a lot Today salad with chicken, Parmesan cheese, ranch dressing.Breakfas t- triple zero Chobani with chocolate chips, banana.dinner- salad Sore throat off and on. grandkids sick. Diana Hunter NP [address] [facility], [facility] [address], [place], [address], [employer] [facility] [employer] 11/03/2022 16:17:36 12/08/2022 text/html Here for weight check. Plans to attend a fitness boot camp on .Phenterm ine is helping lose 2 lbs monthly. 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 Left shoulder is still hurting. Flexeril 10 mg knocked her out. hasn't been to PT. Diana Hunter NP [address], [facility] [address], [place], [address], [facility] [employer] 12/08/2022 17:32:35 05/13/2023 text/html Here for weight check. Has been on phentermine- down 1 lb in 1 mo.Breakfast- energy bite- oats, pb, honey.Lunch- appleDinner- eggs Not able to eat a lot of veggies due to UC.Diarrhea. Drinking 64+ ounces water daily.Drinking body armour 5 calorie drink daily.Unsweet tea. Interested in seeing telecommunications network engineer. Hasn't been to homemaker companion in 5 years. Diana Hunter NP [address], [facility] [address], [place], [address], [employer] 05/13/2023 08:40:11 OBGyn Episode No OBEpisode recorded.
--- OUTSIDE RECORDS SUMMARY | 2024-11-16 01:37 | XMS_ITS | Clinical Summary ---
Author Organization [facility] Address [address] [facility] [place] [address] Care Team Providers Care Or First Assist Registered Nurse Name Role Phone Isabel Kline MD Primary Care Provider [phone] Diana Hunter APRN-LAW OFFICE ASSISTANT Unavailable [phone] Tommy Harper MD Unavailable [phone] Source Comments [facility],non-owned Affiliates and Associated Physician Practices is amultiple site organization consisting of ambulatory clinics and hospital sitesin [place], [place], [place] and [place]. This disclosure is being madepursuant to the Care Everywhere program and may not contain all information available regarding this patient. Last updated 18.[facility] Allergies Active Allergy Reactions Criticality Noted Date [...] vitamin D, ergocalciferol , (DRISDOL) 1.25 MG (95029 UT) capsule Take 50,000 Units by mouth [...] 9:31 AM CDT Height 157.5 cm (5' 2) 12/13/2020 9:31 AM CDT Body Mass Index 32.74 12/13/2020 9:31 AM CDT Plan of Treatment Health Maintenance Due Date Last Done Comments COLOGUARD (AGES 45-75) - COLON CA SCREENING 1966 COLON MONITORING 1966 COLONOSCOPY [...] (1 of 2) 02/29/2016 SCREENING FOR DIABETES 02/18/2023 0, 02/19/2020, 02/13/2020, Additional history exists COVID-19 VACCINE (2 - season) 2024 09/30/2020 DEPRESSION SCREENING 06/14/2024 INFLUENZA [...] A/C/Y/W VACCINE Aged Out No longer eligible based on patient's age to [place] [id number] AN[employer]M [employer] CIGNA ANTHEM CIGNA Care Teams Or First Assist Registered Nurse Relationship Specialty Start Date End Date Isabel Kline MD [address] [place] [address] [address] [place] [address] PCP - General 01/04/18 Diana Hunter, DOCUMENT MANAGEMENT TECHNICIAN-LAW OFFICE ASSISTANT [address] [place] [phone] Nurse Practitioner Family 12/13/20 Tommy Harper MD [address] [place] [address] Gastroenterology 12/13/20
--- OUTSIDE RECORDS SUMMARY | 2024-11-16 01:37 | XMS_ITS | Patient Health Record ---
Author Organization [facility] [place] [facility] [place] ([phone]) Address [address] [facility] [address] [place] [address] Care Team Providers Care Home Theater Experience Expert Name Role Phone Diana Emerson Primary Care Provider Shannon vailable Patricia Loco Unavailable [phone] [employer], Provider Unavailable Unavailab le Allergies Allergen [...] review and pick correct strength-formulat ion from Clear Standards options. If intended option is not shown, [...] review and pick correct strength-formulat ion from Clear Standards options. If intended option is not shown, [...] Status Risk Notes Problem Chronic allergic conjunctivitis (93151337) Other chronic allergic conjunctivitis (H10.45) Active confirmed Problem Allergic rhinitis caused by pollen (disorder) (88519004) Allergic rhinitis due to pollen (J30.1) Active confirmed Problem Allergic rhinitis (08483627) Other allergic rhinitis (J30.89) Active confirmed Problem Elevated blood pressure reading without diagnosis of hypertension (237613303) Elevated blood-pressure reading, without diagnosis of hypertension (R03.0) Active confirmed Encounters Encounter Location Date Provider Diagnosis [address] [address] 11/27/2023 Provider Qing Allergic rhinitis due to pollen J30.1 Assessments Encounter Date Diagnosis (ICD Code) Assessment Notes Treatment Notes Treatment Clinical Notes Section Notes 11/27/2023 Allergic rhinitis due to pollen (ICD-10 - J30.1) Plan Of Treatment No Information Insurance Providers Payer Name Payer Address Payer Phone Subscriber Number Group Number Insured Name Patient Relationship to Insured Coverage Start Date Coverage End Date [facility] [address] [address] [place], [place] [id number] [phone] [id number] Ainsley Davis Self - patient is the insured Medical (General) History Medical History History ICD Code Allergic rhinitis due to pollen Other allergic rhinitis Other chronic allergic conjunctivitis Ulcerative colitis, unspecified with uns pecified complications Calculus of kidney Surgical History Surgery Date(Month/Year) lithotripsy 1995 cholecystectomy 2017
--- OUTSIDE RECORDS SUMMARY | 2024-11-16 01:37 | XMS_ITS | Clinical Summary ---
Author Organization [facility] Address [address], [address] [address] Phone Care Team Providers Care Brick Handler Name Role Phone June Gutierrez APRN Primary Care Provider [phone] Marylou Hemphill APRN, CLINICAL REVIEW SPECIALIST Unavailable [phone] Allergies Active Allergy Reactions Criticality Noted Date [...] Fish Oil-Cholecalcif erin (FISH OIL + D3) 1437-3433 MG-UNIT Capsule Take by mouth. Active Digestive [...] Comments Blood Pressure 122/70 06/24/2017 1:52 PM WAREHOUSE ENGINEER Pulse 87 06/24/2017 1:52 PM WAREHOUSE ENGINEER Temperature 36.6 C (97.8 F) 03/18/2017 2:13 PM CDT Respiratory Rate 12 05/21/2016 10:3 9 AM WAREHOUSE ENGINEER Oxygen Saturation 97% 06/24/2017 1:52 PM WAREHOUSE ENGINEER Inhaled Oxygen Concentration - - Weight 79.2 kg (174 lb 11.2 oz) 06/24/2017 1:52 PM WAREHOUSE ENGINEER Height 157.5 cm (5' 2) 06/24/2017 1:52 PM WAREHOUSE ENGINEER Body Mass Index 31.95 06/24/2017 1:52 PM WAREHOUSE ENGINEER Plan of Treatment Health Maintenance Due Date [...] 05/03/2014 Colorectal Cancer Screening 01/20/2018 Influenza Immunization (Seas on Ended) 2025 Respiratory Syncytial Virus (RSV) Immunization (Adult) (1 - 1-dose 75+ series) 2041 01/20/2017, 05/03/2014 Human Papillomavirus (HPV) Immunization Aged Out No longer eligible b ased on patient's age to complete this topic Meningococcal Immunization (ACWY) Aged Out No longer [...] Most Recently Relevant to Health Maintenance Insurance [facility] Care Teams Brick Handler Relationship Specialty Start Date End Date June Gutierrez APRN PCP - General Advanced Practice Nurse 05/21/16 Marylou Hemphill APRN, CLINICAL REVIEW SPECIALIST Nurse Practitioner Advanced Practice Nurse 05/21/16
[2024-11-16 06:17] VITALS: BP 104/70; PULSE 64; RESP 18; TEMP 36.1; O2SAT 96; BMI 30.6
[2024-11-16] MEDS: LACTATED RINGERS 1,000 ML 150 ML IV CONT (06:55)
--- NOTE | 2024-11-16 07:29 | WPDANESEPPF ---
Anes - Initial Pre Proc Eval Procedure: Operation Date: 11/16/24 07:30 Proposed Procedures p Colonoscopy - Dusty Kruger MD Date/Time: 11/16/24 07:29 Surgeon: Dusty Kruger MD Pre Op Diagnosis: hx of colon polyps Patient Data Age: 59 Gender: F Height: 1.57 m Weight: 76 kg Last Vital Signs Temp 97 F L 11/16/24 06:17 Pulse 64 11/16/24 06:17 Resp 18 11/16/24 06:17 BP 104/70 11/16/24 06:17 Pulse Ox 96 11/16/24 06:17 O2 Del Method Room Air 11/16/24 06:17 Allergies Allergy/AdvReac Type Severity Reaction Status Date / Time azathioprine Allergy Intermediate THROAT Verified 11/16/24 06:15 SWELLING mesalamine Allergy Intermediate THROAT Verified 11/16/24 06:15 SWELLING azithromycin Allergy Unknown Hives Verified 11/16/24 06:15 Sulfa (Sulfonamide Allergy Unknown rash Verified 11/16/24 06:15 Antibiotics) pravastatin Allergy Nausea and Verified 11/16/24 06:15 Vomiting bupropion AdvReac Intermediate Diarrhea Verified 11/16/24 06:15 sertraline AdvReac Weight gain Verified 11/16/24 06:15 Home Medications ?Medication ?Instructions ?Recorded ?Confirmed ?Type acetaminophen 325 mg capsule 650 mg PO BID 06/20/21 11/16/24 History (Tylenol) famotidine 20 mg tablet 20 mg PO DAILY 06/20/21 11/16/24 History fluticasone propionate 50 1 spray intranasal DAILY 06/20/21 11/16/24 History mcg/actuation nasal spray,suspension multivitamin with minerals-folic 1 tablet PO DAILY 06/20/21 11/16/24 History acid 0.4 mg tablet azelastine 137 mcg (0.1 %) nasal 137 mcg (0.137 mL) intranasal Q12H 12/09/23 11/16/24 Rx spray #30 mL valacyclovir 500 mg tablet 500 mg PO DAILY #90 tabs 12/09/23 11/16/24 Rx adalimumab-adbm 40 mg/0.8 mL See Rx Instructions .Route 05/12/24 11/07/24 Rx subcutaneous pen kit .COMPLEX #6 kits fluoxetine 20 mg capsule 20 mg PO DAILY #90 caps 07/14/24 11/16/24 Rx montelukast 10 mg tablet 10 mg PO DAILY #90 tabs 07/14/24 11/16/24 Rx ergocalciferol (vitamin D2) 1,250 1,250 mcg PO WEEKLY #12 caps 08/24/24 11/16/24 Rx mcg (50,000 unit) capsule evolocumab 140 mg/mL subcutaneous 140 mg subcut .every 2 weeks #2 mL 11/07/24 11/07/24 Rx pen injector (Saira Currie) Patient hx anesthesia problems: none Family hx anesthesia problems: none Results Review: All pre-operative results and documents have been reviewed as part of the pre-operative evaluation. [facility] Past Medical History Medical History MVP (mitral valve prolapse) Kidney stone B12 deficiency Vitamin D deficiency GERD (gastroesophageal reflux disease) Hyperlipidemia Crohn's colitis Anxiety Seasonal allergies Symptomatic cholelithiasis Plantar fasciitis of right foot Neuritis of right foot Surgical History Surgical History History of lithotripsy History of cholecystectomy History of endometrial ablation H/O hand surgery 1975 - left pinky Family History Family History Sibling Hypertension Family history of kidney stones Mother Family history of malignant neoplasm Family history of kidney disease Depression Father Family history of congestive heart failure Alcoholism Grandparent Hypertension Other Family history of alcoholism Family history of allergic disorder Social History Social History Smoking packs per day: 1 Smoking cigarettes per day: 20.0 Years smoked: 15 Smoking pack-years: 15.00 Smoking status: Former smoker Smoking end date: 06/14/05 Alcohol intake: current Alcohol use details: Maybe 6 in a year Substance use: never Substance use type: does not use Lack of Transportation: No Lack of Food: Never True Current Housing: I Have Housing Concerned About Future Housing: No Difficulty Paying Gas/Electric Bills: No Difficulty Paying for Meds: No Currently Unemployed: No Education: High School Diploma/GED Difficulty w/ Childcare or Family Care: No Living arrangements: with family Occupation/Education: occupation Gender identity (if verbalized by the patient): Female Anecosta - Evphuc Final PreProcedure Day of Procedure 11/16/24 07:29 Patient weight: obese Lungs: normal air movement Airway: Mallampati scale class II Neurological: alert and oriented Last oral intake: >/= 8 hours ASA classification: III Emergent: no Anesthetic plan: proceed Anesthesia type and monitoring: general GIVS and standard monitoring Results Review: All pre-operative results and documents have been reviewed as part of the pre-operative evaluation. BMI 30, ex smoker, ANDRIA on CPAP. Informed Consent: The patient's anesthetic plan and its attendant risks and benefits were discussed with the patient/family/POA. Questions were solicited and answers provided to the satisfaction of the patient/family/POA.
--- NOTE | 2024-11-16 07:30 | PM.IMHP ---
H&P: HPI History of Present Illness Date/Time: 11/16/24 07:30 Chief Complaint: history of ulcerative colitis Narrative: the patient has a longstanding history of ulcerative colitis for approximately 20 years, and it has been well controlled with Humira 40 mg every 2 weeks. she is here for surveillance colonoscopy. Review of Systems Review of Systems: All systems reviewed & are unremarkable except as noted in HPI and below PMFSH Past Medical History Medical History MVP (mitral valve prolapse) Kidney stone B12 deficiency Vitamin D deficiency GERD (gastroesophageal reflux disease) Hyperlipidemia Crohn's colitis Anxiety Seasonal allergies Symptomatic cholelithiasis Plantar fasciitis of right foot Neuritis of right foot Surgical History Surgical History History of lithotripsy History of cholecystectomy History of endometrial ablation H/O hand surgery 1975 - left pinky Family History Family History Sibling Hypertension Family history of kidney stones Mother Family history of malignant neoplasm Family history of kidney disease Depression Father Family history of congestive heart failure Alcoholism Grandparent Hypertension Other Family history of alcoholism Family history of allergic disorder Social History Social History Smoking packs per day: 1 Smoking cigarettes per day: 20.0 Years smoked: 15 Smoking pack-years: 15.00 Smoking status: Former smoker Smoking end date: 06/14/05 Alcohol intake: current Alcohol use details: Maybe 6 in a year Substance use: never Substance use type: does not use Lack of Transportation: No Lack of Food: Never True Current Housing: I Have Housing Concerned About Future Housing: No Difficulty Paying Gas/Electric Bills: No Difficulty Paying for Meds: No Currently Unemployed: No Education: High School Diploma/GED Difficulty w/ Childcare or Family Care: No Living arrangements: with family Occupation/Education: occupation Gender identity (if verbalized by the patient): Female Meds Home Medications and Allergies Home Medications ?Medication ?Instructions ?Recorded ?Confirmed ?Type acetaminophen 325 mg capsule 650 mg PO BID 06/20/21 11/16/24 History (Tylenol) famotidine 20 mg tablet 20 mg PO DAILY 06/20/21 11/16/24 History fluticasone propionate 50 1 spray intranasal DAILY 06/20/21 11/16/24 History mcg/actuation nasal spray,suspension multivitamin with minerals-folic 1 tablet PO DAILY 06/20/21 11/16/24 History acid 0.4 mg tablet azelastine 137 mcg (0.1 %) nasal 137 mcg (0.137 mL) intranasal Q12H 12/09/23 11/16/24 Rx spray #30 mL valacyclovir 500 mg tablet 500 mg PO DAILY #90 tabs 12/09/23 11/16/24 Rx adalimumab-adbm 40 mg/0.8 mL See Rx Instructions .Route 05/12/24 11/07/24 Rx subcutaneous pen kit .COMPLEX #6 kits fluoxetine 20 mg capsule 20 mg PO DAILY #90 caps 07/14/24 11/16/24 Rx montelukast 10 mg tablet 10 mg PO DAILY #90 tabs 07/14/24 11/16/24 Rx ergocalciferol (vitamin D2) 1,250 1,250 mcg PO WEEKLY #12 caps 08/24/24 11/16/24 Rx mcg (50,000 unit) capsule evolocumab 140 mg/mL subcutaneous 140 mg subcut .every 2 weeks #2 mL 11/07/24 11/07/24 Rx pen injector (Saira Currie) Allergies Allergy/AdvReac Type Severity Reaction Status Date / Time azathioprine Allergy Intermediate THROAT Verified 11/16/24 06:15 SWELLING mesalamine Allergy Intermediate THROAT Verified 11/16/24 06:15 SWELLING azithromycin Allergy Unknown Hives Verified 11/16/24 06:15 Sulfa (Sulfonamide Allergy Unknown rash Verified 11/16/24 06:15 Antibiotics) pravastatin Allergy Nausea and Verified 11/16/24 06:15 Vomiting bupropion AdvReac Intermediate Diarrhea Verified 11/16/24 06:15 sertraline AdvReac Weight gain Verified 11/16/24 06:15 Vital Signs Vital Signs - 24 hr 11/16/24 06:17 Temperature 97 F L Pulse Rate 64 Respiratory Rate 18 Blood Pressure 104/70 Pulse Oximetry 96 Oxygen Delivery Room Air Exam Const: General: cooperative and healthy appearing Resp: Effort & Inspection: normal respiratory effort and able to speak in complete sentences Auscultation: clear to auscultation bilaterally Cardio: Rate: regular rate Rhythm: regular rhythm GI: Inspection: normal to inspection GI Palp: No No hepatosplenomegaly present Auscultation: normal bowel sounds Rectal Exam: deferred Skin: General skin exam: normal color Psych: Appearance: grossly normal Mental Status: mental status grossly normal Assessment and Plan Assessment and plan (1) Ulcerative colitis: Qualifiers: Ulcerative colitis location: unspecified ulcerative colitis location Digestive disease complication type: unspecified complication Qualified Code(s): K51.919 - Ulcerative colitis, unspecified with unspecified complications Code(s): K51.90 - Ulcerative colitis, unspecified, without complications Status: Acute Assessment and Plan: The patient is deemed a good candidate for the procedure. Consent signed. Will proceed.
[2024-11-16] MEDS: SIMETHICONE ORAL SUSPENSION 20 MG/0.3 ML 30 ML BOTTLE 0.6 ML IRRIGATION (07:41)
[2024-11-16 07:50] VITALS: BP 140/82; PULSE 57; RESP 15; O2SAT 96
[2024-11-16 08:00] VITALS: BP 124/80; PULSE 57; RESP 18; O2SAT 99
[2024-11-16 08:10] VITALS: BP 148/82; PULSE 55; RESP 18; O2SAT 99
== END 2024-11-16 08:25 | disposition home or self-care (01) ==
PROVIDERS: PCP Nurse Practitioner Family; Referring Provider Internal Medicine Gastroenterology; Visit Provider Internal Medicine Gastroenterology
PROC: 0DJD8ZZ Inspection of Lower Intestinal Tract, Via Natural or Artificial Opening Endoscopic (ICD-10-PCS; CPT 45378; principal; 2024-11-16 07:30)
DX: K57.30 Diverticulosis of large intestine without perforation or abscess without bleeding (principal); K50.90 Crohn's disease, unspecified, without complications; E53.8 Deficiency of other specified B group vitamins; E55.9 Vitamin D deficiency, unspecified; K21.9 Gastro-esophageal reflux disease without esophagitis; E78.5 Hyperlipidemia, unspecified; F41.9 Anxiety disorder, unspecified; G47.33 Obstructive sleep apnea (adult) (pediatric); E66.9 Obesity, unspecified; Z68.30 Body mass index [BMI] 30.0-30.9, adult; Z79.620 Long term (current) use of immunosuppressive biologic; Z79.85 Long-term (current) use of injectable non-insulin antidiabetic drugs; Z99.89 Dependence on other enabling machines and devices; Z98.890 Other specified postprocedural states; Z90.49 Acquired absence of other specified parts of digestive tract; Z98.891 History of uterine scar from previous surgery; Z87.891 Personal history of nicotine dependence; Z86.79 Personal history of other diseases of the circulatory system; Z87.442 Personal history of urinary calculi; Z87.19 Personal history of other diseases of the digestive system; Z80.9 Family history of malignant neoplasm, unspecified; Z82.49 Family history of ischemic heart disease and other diseases of the circulatory system
CPT/HCPCS: 45378; J2704; J7120

== ENCOUNTER 2025-02-15 08:56 | Outpatient (CLI) | payer OTHER, SELFPAY ==
--- OUTSIDE RECORDS SUMMARY | 2023-10-25 12:30 | XMS_ITS ---
Author Organization [facility] [place] ([address]) Address [address] [place] [address] Care Team Providers Care Notch Grinder Name Role Phone Elsa CAMDiana SPRAGUE Primary Care Provider Shannon vailable Patricia Loco Unavailable [phone] Chong Gregorio Unavailable [phone] Encounters Encounter Location Date Provider Diagnosis [facility] [address] [place] [address] 10/25/2023 Chong Gregorio Plan Of Treatment No Information Progress Notes * Renetta BACONiDOB:1965 (59 yo F)Acc No.[id number]:10/25/2023 Progress Notes Patient: Ainsley CARRANZA Provider: Deb Gregorio PA-C :1965 A ge:58 Y S ex:Female Date:10/25/2023 Address:[facility] [id number] Pcp:CHANDRAKANT Sanchez Subjective: * Chief Complaints: * * Medical History: Objective: * Vitals: Assessment: Plan: * Treatment: * Billing Information: * Visit Code: * Procedure Codes: * Electronic signature of Silvestre Gregorio PA-C on 02/15/2025 at 09:10 AM CDT Sign off status: Pending * Provider: Deb Gregorio PA-C Date: 0 10/25/2023 Generated for Jorge price/Bridget/Kathie on: 0 02/15/2025 09:10 AM CDT
--- OUTSIDE RECORDS SUMMARY | 2023-11-27 16:30 | XMS_ITS ---
Author Organization [facility] [place] ([address]) Address [address] [address] Care Team Providers Care Temperature Regulator Name Role Phone Diana Emerson Primary Care Provider Shannon vailable Patricia Loco Unavailable [phone] [employer], Provider Unavailable Unavailab le Allergies Allergen (clinical drug ingredient) Drug/Non Drug Allergy documented on EMR Reaction Allergy Type Onset Date Status Sulfamethizole SULFAMETHIZOLE (uncoded) hives Allergy Active mesalamine Apriso throat itching/swelli ng Drug Allergy Active azathioprine azaTHIOprine vomiting, diarrhea Drug Allergy Active azithromycin Azithromycin joint pain Drug Allergy Active mesalamine Lialda hives Drug Allergy Active REASON FOR VISIT [facility] To [facility] Conversion Encounter Medications Medication SIG (Take, Route, Frequency, Duration) Notes Start Date End Date Status Singulair 10 MG 1 tab(s) orally once a day; Duration: 30 Active NASAL WASHES N/A DIRECTED INTRANASALLY NEEDED; Duration: 30 *Please review for potential replacement for e-prescription and drug interaction check* Active Sudafed PE Maximum Strength 10 MG 1 tab(s) orally every 4 hours prn Active Azelastine HCl 137 MCG/SPRAY 2 spray(s) intranasally BID; Duration: 30 day(s) Active Montelukast Sodium 10 MG 1 tab(s) orally once a day; Duration: 30 days 01/18/2020 Active Singulair 10 MG 1 tab(s) orally once a day; Duration: 30 Active RANITIDINE 150 MG 1 CAP(S) ORALLY 2 TIMES A DAY *Please review for potential replacement for e-prescription and drug interaction check* Active Patanase 665 MCG/INH 2 SPRAY(S) INTRANASALLY 2 TIMES A DAY, PRN; Duration: 30 DAY(S) *Please review and pick correct strength-formulat ion from [employer] options. If intended option is not shown, discontinue and re-order from Quick Search* Not-Taking Benadryl Allergy 25 MG 1 by mouth Qday, PRN Not-Rhys ing Flonase Allergy Relief 50 MCG/ACT 2 sprays intranasally once a day; Duration: 30 day(s) Active Flonase Allergy Relief 50 MCG/ACT 1 spray(s) intranasally once a day Active Humira Pen 40 MG/0.8 ML SUBCUTANEOUSLY EVERY OTHER WEEK *Please review and pick correct strength-formulat ion from [employer] options. If intended option is not shown, discontinue and re-order from Quick Search* Active Multivitamin - 1 tab(s) orally once a day Active Tylenol 325 MG 2 tab(s) orally every 4 hours Active Encounters Encounter Location Date Provider Diagnosis [address] [address] 11/27/2023 Provider Qing Allergic rhinitis due to pollen J30.1 Assessments Encounter Date Diagnosis (ICD Code) Assessment Notes Treatment Notes Treatment Clinical Notes Section Notes 11/27/2023 Allergic rhinitis due to pollen (ICD-10 - J30.1) Plan Of Treatment Medication Medication Name Sig Start Date Stop Date Notes Singulair 10 MG 1 tab(s) orally once a day; Duration: 30 NASAL WASHES N/A DIRECTED INTRANASALLY NEEDED; Duration: 30 *Please review for potential replacement for e-prescription and drug interaction check* Sudafed PE Maximum Strength 10 MG 1 tab(s) orally every 4 hours prn Azelastine HCl 137 MCG/SPRAY 2 spray(s) intranasally BID; Duration: 30 day(s) Montelukast Sodium 10 MG 1 tab(s) orally once a day; Duration: 30 days 01/18/2020 Singulair 10 MG 1 tab(s) orally once a day; Duration: 30 Flonase Allergy Relief 50 MCG/ACT 2 sprays intranasally once a day; Duration: 30 day(s) Progress Notes * Renetta BACONiDOB:1965 (59 yo F)Acc No.[id number]:11/27/2023 Patient: Ainsley CARRANZA Provider: Riri Thompson :1965 A ge:58 Y S ex:Female Date:11/27/2023 [place] [place] [facility] Pcp:Diana Hunter [facility] Subjective: * Chief Complaints: * 1 . [facility]. * Medical History: * Medications: T aking Flonase Allergy Relief 50 MCG/ACT Suspension 1 spray(s) intranasally once a day , Taking Humira Pen 40 MG/0.8 ML KIT SUBCUTANEOUSLY EVERY OTHER WEEK , Notes to Pharmacist: *Please review and pick [facility]. If intended option is not shown, discontinue and re-order from Quick Search*, Taking Multivitamin - Tablet 1 tab(s) orally once a day , Taking Tylenol 325 MG Tablet 2 tab(s) orally every 4 hours , Taking RANITIDINE 150 MG CAPSULE 1 CAP(S) ORALLY 2 TIMES A DAY , Notes to Pharmacist: *Please review for potential replacement for e-prescription and drug interaction check*, Not-Taking/PRN Patanase 665 MCG/INH SPRAY 2 SPRAY(S) INTRANASALLY 2 TIMES A DAY, PRN , Notes to Pharmacist: *Please review and pick [facility]. If intended option is not shown, discontinue and re-order from Quick Search*, Not-Taking/PRN Benadryl Allergy 25 MG Tablet 1 by mouth Qday, PRN * Allergies: a zaTHIOprine: vomiting, diarrhea - Side Effects, Azithromycin: joint pain - Side Effects, SULFAMETHIZOLE: hives - Allergy, Lialda: hives - Allergy, Apriso: throat itching/swelling - Allergy. Objective: * Vitals: Assessment: * Assessment: 1. A llergic rhinitis due to pollen - J30.1 (Primary) Plan: * Treatment: 2. O thers Refill Singulair Tablet, 10 MG, 1 tab(s), orally, once a day, 30, 30, Refills 1; R efill Singulair Tablet, 10 MG, 1 tab(s), orally, once a day, 30, 30, Refills 0; R efill Montelukast Sodium Tablet, 10 MG, 1 tab(s), orally, once a day, 30 days, 30, Refills 2. * Billing Information: * Visit Code: * Procedure Codes: * Electronic signature of Ja TRAVIS-Migration on 02/15/2025 at 09:10 AM CDT Sign off status: Pending * Provider: Riri rudd Migration Date: 0 11/27/2023 Generated for Jorge price/Bridget/Kathie on: 0 02/15/2025 09:10 AM CDT
--- NOTE | ~2025-02-15 | XR_ITS ---
XR abdomen/kub 1V 02/15/2025 09:15 INDICATION: Kidney stone TECHNIQUE: KUB COMPARISON: None FINDINGS: Bowel gas pattern is normal. There is no evidence of free air, mass, organomegaly, ascites or obstruction. No abnormal calculi are seen. The bones appear intact. There are cholecystectomy clips. IMPRESSION: 1: No acute abdominal abnormality identified. Reviewed, dictated and finalized at location O.
--- OUTSIDE RECORDS SUMMARY | 2025-02-15 09:10 | XMS_ITS | Clinical Summary ---
Author Organization [facility] Address [address], [address] [address] Phone Care Team Providers Care Hr Advisor Name Role Phone June Gutierrez APRN Primary Care Provider [phone] Marylou Hemphill APRN, BRIM POUNCER Unavailable [phone] Allergies Active Allergy Reactions Criticality Noted Date [...] Fish Oil-Cholecalcif erin (FISH OIL + D3) 6470-7786 MG-UNIT Capsule Take by mouth. Active Digestive [...] Comments Blood Pressure 122/70 06/24/2017 1:52 PM BAND SPLICER Pulse 87 06/24/2017 1:52 PM BAND SPLICER Temperature 36.6 C (97.8 F) 03/18/2017 2:13 PM CDT Respiratory Rate 12 05/21/2016 10:3 9 AM BAND SPLICER Oxygen Saturation 97% 06/24/2017 1:52 PM BAND SPLICER Inhaled Oxygen Concentration - - Weight 79.2 kg (174 lb 11.2 oz) 06/24/2017 1:52 PM BAND SPLICER Height 157.5 cm (5' 2) 06/24/2017 1:52 PM BAND SPLICER Body Mass Index 31.95 06/24/2017 1:52 PM BAND SPLICER Plan of Treatment Health Maintenance Due Date Last Done Comments Hepatitis C Virus (HCV) Screening 1966 TdaP Immunization 1966 SARS-COV-2 Immunization (#1) 1971 Hepatitis B Immunization (1 of 3 - 19+ 3-dose series) 1985 Zoster Immunization (1 of 2) 1985 Pap Smear 1987 Cervical Cancer Screening (CCS) 02/29/1996 HPV/Cotest 02/29/1996 Cologuard 2011 Immunochemical Fecal Occult Blood 2011 Pneumococcal Immunization (5 0+ years) (1 of 1 - PCV) 02/29/2016 Colonoscopy 01/20/2018 01/20/2017, 05/03/2014 Colorectal Cancer Screening 01/20/2018 Influenza Immunization (#1) 2025 Respiratory Syncytial Virus (RSV) Immunization (Adult) (1 - 1-dose 75+ series) 2041 Human Papillomavirus (HPV) Immunization Aged Out No [...] Recently Relevant to Health Maintenance Insurance [facility] Care Teams Hr Advisor Relationship Specialty Start Date End Date June Gutierrez APRN PCP - General Advanced Practice Nurse 05/21/16 Marylou Hemphill APRN, BRIM POUNCER Nurse Practitioner Advanced Practice Nurse 05/21/16
--- OUTSIDE RECORDS SUMMARY | 2025-02-15 09:10 | XMS_ITS | Clinical Summary ---
Author Organization [facility] Address [address] [place] [id number] Care Team Providers Care Area Development Consultant Name Role Phone Diana Hunter [facility] Primary Care Provider + Allergies Active Allergy [...] CDT Gender Identity Female 06/02/2021 12:29 PM SIGNAL TOWER OPERATOR Sexual Orientation Straight 06/02/2021 12 :29 PM SIGNAL TOWER OPERATOR Last Filed Vital Signs Vital Sign Reading [...] 7:14 AM CDT Height 157.5 cm (5' 2) 02/19/2020 7:14 AM CDT Body Mass Index [...] Screening 05/24/2022 05/24/2020 COVID-19 Vaccine (3 - 2024-2 6 season) 2025 09/30/2020, 09/02/2020 Zoster Vaccines Completed 02/02/2020, 07/13/2019, [...] SHRUTHI VIC DIGI Routine 05/24/2020 10:53 AM SIGNAL TOWER OPERATOR Visit for screening mammogram from Last 3 Months or Most Recently Relevant to Health Maintenance Results * MG SCREENING W SHRUTHI VIC DIGI (05/24/2020 10:53 AM SIGNAL TOWER OPERATOR) Anatomical Region Laterality Modality Breast Bilateral Mammography 06/27/2020 11:4 1 AM SIGNAL TOWER OPERATOR Narrative 06/27/2020 11:42 AM SIGNAL TOWER OPERATOR EXAMINATION: MG SCREENING W SHRUTHI VIC DIGI [...] Gene Freeman, 06/27/2020 11:41 AM Diana Hunter [employer] MAMMO Final Re sult from Last 3 Months or Most Recently Relevant to Health [place] [address] [facility] Care Teams Area Development Consultant Relationship Specialty Start Date End Date Diana Hunter, [employer] [address] [place] [id number] PCP - General NURSE PRACTITIONER 05/21/19
--- OUTSIDE RECORDS SUMMARY | 2025-02-15 09:10 | XMS_ITS | Clinical Summary ---
Author Organization [facility] Address [address] [place] [address] Phone Care Team Providers Care Gold Leaf Layer Name Role Phone Elsa, Diana PARACHUTIST/COMBATANT DIVER QUALIFIED Primary Care Provider [phone] Allergies Active Allergy Reactions Criticality Noted Date [...] Health Maintenance Due Date Last Done Comments Pneumococcal PPSV23 Highest Risk Adult (1 of 3 - PCV13) 1985 COVID-19 Vaccine ( season) 2024 06/12/2021, 09/30/2020, 09/02/2020 Influenza Vaccine (#1) 2025 04/08/2021, [address] Care Teams Gold Leaf Layer Relationship Specialty Start Date End Date Diana Hunter NP [address] [place] [phone] PCP - General Family Medicine 02/17/24
--- OUTSIDE RECORDS SUMMARY | 2025-02-15 09:10 | XMS_ITS | Clinical Summary ---
Author Organization [facility] Address [address] [place] [address] Care Team Providers Care Coating And Baking Operator Name Role Phone Isabel Kline MD Primary Care Provider [phone] Diana Hunter APRN-CAR FERRY MASTER Unavailable [phone] Tommy Harper MD Unavailable [phone] Source Comments [facility],non-owned Affiliates and Associated Physician Practices is amultiple site organization consisting of ambulatory clinics and hospital sitesin [place], [place] and [place]. This disclosure is being madepursuant to the Care Everywhere program and may not contain all information available regarding this patient. Last updated 18.[facility] Allergies Active Allergy Reactions Criticality Noted Date [...] vitamin D, ergocalciferol , (DRISDOL) 1.25 MG (10506 UT) capsule Take 50,000 Units by mouth [...] 2024 09/30/2020 DEPRESSION SCREENING 06/14/2024 INFLUENZA VACCINE (#1) 2025 0, 03/17/2019, 03/22/2017 HIB VACCINE Aged Out No [...] patient's age to complete [place] [address] [place] [address] [employer] Care Teams Coating And Baking Operator Relationship Specialty Start Date End Date Isabel Kline MD [address] [place] [address] [address] [place] [phone] PCP - General 01/04/18 Diana Hunter APRN-CAR FERRY MASTER [address] [place] [phone] Nurse Practitioner Family 12/13/20 Tommy Harper MD [address] [place] [address] Gastroenterology 12/13/20
--- OUTSIDE RECORDS SUMMARY | 2025-02-15 09:10 | XMS_ITS | Patient Health Record ---
Author Organization [facility] [place] ([address]) Address [address] [facility] [address] [place] [address] Care Team Providers Care Wood Box Maker Name Role Phone Diana Emerson Primary Care Provider Shannon vailable Patricia Loco Unavailable [phone] Allergies Allergen (clinical drug ingredient) Drug/Non Drug Allergy documented on EMR Reaction Allergy Type Onset Date Status Sulfamethizole SULFAMETHIZOLE (uncoded) hives Allergy Active mesalamine Apriso throat itching/swelli ng Drug Allergy Active azathioprine azaTHIOprine vomiting, diarrhea Drug Allergy Active azithromycin Azithromycin joint pain Drug Allergy Active mesalamine Lialda hives Drug Allergy Active Reason For Referral No Information Medications Medication SIG (Take, Route, Frequency, Duration) Notes Start Date End Date Status AZELASTINE NASAL 137 mcg/inh 2 spray(s) intranasally BID; Duration: 30 day(s) Active Montelukast Sodium 10 MG 1 tab(s) orally once a day; Duration: 30 days 01/18/2020 Active SUDAFED PE 10 mg 1 tab(s) orally every 4 hours prn Active Singulair 10 MG 1 tab(s) orally once a day; Duration: 30 Active Tylenol 325 MG 2 tab(s) orally every 4 hours Active RANITIDINE 150 MG 1 CAP(S) ORALLY 2 TIMES A DAY *Please review for potential replacement for e-prescription and drug interaction check* Active Patanase 665 MCG/INH 2 SPRAY(S) INTRANASALLY 2 TIMES A DAY, PRN; Duration: 30 DAY(S) *Please review and pick correct strength-formulat ion from Linkfluence options. If intended option is not shown, discontinue and re-order from Quick Search* Not-Taking MONTELUKAST 10 mg 1 tab(s) orally once a day; Duration: 30 days 01/18/2020 Active Benadryl Allergy 25 MG 1 by mouth Qday, PRN Not-Rhys ing Flonase Allergy Relief 50 MCG/ACT 2 sprays intranasally once a day; Duration: 30 day(s) Active SINGULAIR 10 mg 1 tab(s) orally once a day; Duration: 30 Active NASAL WASHES N/A DIRECTED INTRANASALLY NEEDED; Duration: 30 *Please review for potential replacement for e-prescription and drug interaction check* Active Sudafed PE Maximum Strength 10 MG 1 tab(s) orally every 4 hours prn Active Azelastine HCl 137 MCG/SPRAY 2 spray(s) intranasally BID; Duration: 30 day(s) Active SINGULAIR 10 1 tab(s) orally once a day; Duration: 30 Active HUMIRA PEN 40 mg/0.8 mL subcutaneously every other week Active Singulair 10 MG 1 tab(s) orally once a day; Duration: 30 Active BENADRYL 25mg 1 by mouth Qday, PRN Not-Taking FLONASE 50 mcg/inh 1 spray(s) intranasally once a day Active FLONASE 50 mcg/inh 2 sprays intranasally once a day; Duration: 30 day(s) Active PATANASE 665 mcg/inh 2 spray(s) intranasally 2 times a day, PRN; Duration: 30 day(s) Not-Taking TYLENOL 325 mg 2 tab(s) orally every 4 hours Active MULTIVITAMIN Multiple Vitamins 1 tab(s) orally once a day Active Flonase Allergy Relief 50 MCG/ACT 1 spray(s) intranasally once a day Active Humira Pen 40 MG/0.8 ML SUBCUTANEOUSLY EVERY OTHER WEEK *Please review and pick correct strength-formulat ion from Linkfluence options. If intended option is not shown, [...] Status Risk Notes Problem Chronic allergic conjunctivitis (50525677) Other chronic allergic conjunctivitis (H10.45) Active confirmed Problem Allergic rhinitis caused by pollen (disorder) (38168287) Allergic rhinitis due to pollen (J30.1) Active confirmed Problem Allergic rhinitis (66626478) Other allergic rhinitis (J30.89) Active confirmed Problem Elevated blood pressure reading without diagnosis of hypertension (172252556) Elevated blood-pressure reading, without diagnosis of hypertension (R03.0) Active confirmed Plan Of Treatment No Information Insurance Providers Payer Name Payer Address Payer Phone Subscriber Number Group Number Insured Name Patient Relationship to Insured Coverage Start Date Coverage End Date R [address] [address] [place], [place] [id number] [phone] Ainsley Davis Self - patient is the insured Medical (General) History Medical History History ICD Code Allergic rhinitis due to pollen Other allergic rhinitis Other chronic allergic conjunctivitis Ulcerative colitis, unspecified with uns pecified complications Calculus of kidney Surgical History Surgery Date(Month/Year) lithotripsy 1995 cholecystectomy 2017
== END 2025-02-15 08:57 | disposition home or self-care (01) ==
PROVIDERS: PCP Nurse Practitioner Family; Visit Provider Urology
DX: N20.0 Calculus of kidney (principal)
CPT/HCPCS: 74018